=== PATIENT | female | born 1945 | race Hispanic/Latino ===

== ENCOUNTER 2018-09-11 08:36 | Inpatient (IN) | payer OTHER, MEDICARE ==
[2018-09-11 08:52] VITALS: BMI 32.8
[2018-09-11] MEDS ORDERED: Sodium Chloride 0.9% 1,000 ML IV STA ×2 (09:06→11:46)
--- NOTE | 2018-09-11 09:34 | ED PDOC ---
Arrival/HPI - General Chief Complaint: Flu-like Symptoms Time Seen by Provider: 09/11/18 08:38 Historian: Patient - History of Present Illness Narrative History of Present Illness (Text): 09/11/18 09:02 72 y/o F, with past medical history of COPD and hypertension, presents to the ED for evaluation of neck pain since last night. Patient states she was recently diagnosed with the flu 3 weeks ago and was started on Tamiflu and antibiotics with no improvement to symptoms. Patient reports worsening symptoms since then associated with worsening cough, nausea and back pain. Patient states developing neck pain last night, prompting her to present to the ED for evaluation. Patient denies any trauma or injury to the neck. Patient denies any other associated somatic complaints. Patient denies any fevers, chills, headache, dizziness, chest pain, shortness of breath, dyspnea on exertion, abdominal pain, vomiting, diarrhea, or any other complaints. PMD: Dr. Rivera Nephorologist: Dr. Sanford Time/Duration: 24 hours Symptom Onset: Gradual Symptom Course: Unchanged Activities at Onset: Light Context: Home Past Medical History - Provider Review Nursing Documentation Reviewed: Yes - Cardiac Hx Hypertension: Yes Hx Pacemaker: No - Neurological Hx Paralysis: No - Hematological/Oncological Hx Blood Transfusions: No - Musculoskeletal/Rheumatological Hx Musculoskeletal Disorders: No - Psychiatric Hx Emotional Abuse: No Hx Physical Abuse: No Hx Substance Use: No - Anesthesia Hx Anesthesia: Yes Hx Anesthesia Reactions: No Hx Malignant Hyperthermia: No Family/Social History - Physician Review Nursing Documentation Reviewed: Yes Family/Social History: Unknown Family HX Smoking Status: Never Smoked Hx Alcohol Use: No Hx Substance Use: No Allergies/Home Meds Allergies/Adverse Reactions: Allergies scallops Allergy (Verified 09/11/18 14:43) PT NOT SURE shrimp Allergy (Verified 09/11/18 14:43) PT NOT SURE wheat Allergy (Verified 09/11/18 14:43) RASH amlodipine Adverse Reaction (Verified 09/11/18 14:43) GLANDS IN NECK SWELLED Home Medications: Home Meds Medication Instructions Recorded Confirmed Alprazolam [Xanax] 0.5 mg PO BID 08/16/18 09/11/18 Glimepiride [amaRYL] 4 mg PO BID 08/16/18 09/11/18 Levothyroxine [Levoxyl] 0.125 mg PO DAILY 08/16/18 09/11/18 Metoprolol Succinate XL [Toprol XL] 100 mg PO DAILY 08/16/18 09/11/18 SITagliptin [Januvia] 50 mg PO DAILY 08/16/18 09/11/18 Simvastatin [Zocor] 20 mg PO DAILY 08/16/18 09/11/18 Valsartan/Hydrochlorothiazide 1 tab PO DAILY 08/16/18 09/11/18 [Valsartan-Hctz 320-25 mg Tab] Furosemide [Lasix] 40 mg PO DAILY 08/22/18 09/11/18 Review of Systems - Physician Review All systems were reviewed & negative as marked: Yes - Review of Systems Constitutional: absent: Fevers Respiratory: Cough. absent: SOB Cardiovascular: absent: Chest Pain, DEVRIES Gastrointestinal: Nausea. absent: Abdominal Pain, Diarrhea, Vomiting Genitourinary Female: absent: Dysuria, Urine Output Changes Musculoskeletal: Back Pain, Neck Pain Skin: absent: Rash Neurological: absent: Headache, Dizziness Psychiatric: absent: Anxiety Physical Exam Vital Signs Reviewed: Yes Vital Signs Temp Pulse Resp BP Pulse Ox 09/11/18 08:37 97 F L 80 18 192/78 H 100 Temperature: Afebrile Blood Pressure: Hypertensive Pulse: Regular Respiratory Rate: Normal Appearance: Positive for: Well-Appearing, Non-Toxic, Comfortable Pain Distress: None Mental Status: Positive for: Alert and Oriented X 3 - Systems Exam Head: Present: Atraumatic, Normocephalic Pupils: Present: PERRL Extroacular Muscles: Present: EOMI Conjunctiva: Present: Normal Neck: Present: Normal Range of Motion. No: MIDLINE TENDERNESS, Paraspinal Tenderness Respiratory/Chest: Present: Wheezes (coarse breath sounds with expiratory wheeze), Rhonchi. No: Respiratory Distress, Accessory Muscle Use Cardiovascular: Present: Regular Rate and Rhythm, Normal S1, S2. No: Murmurs Abdomen: No: Tenderness, Distention, Peritoneal Signs Back: Present: Normal Inspection. No: Midline Tenderness, Paraspinal Tenderness Upper Extremity: Present: Normal Inspection. No: Cyanosis, Edema Lower Extremity: Present: Normal Inspection. No: Edema Neurological: Present: GCS=15, Speech Normal Skin: Present: Warm, Dry, Normal Color. No: Rashes Psychiatric: Present: Alert, Oriented x 3, Normal Insight, Normal Concentration Medical Decision Making ED Course and Treatment: 09/11/18 09:02 Impression: 72 year old female presents to the ED for evaluation of persistent cough and neck pain Differential Diagnosis included but are not limited to: --Bronchitis --Influenza --PNA --Acute renal injury/failure Plan: -- VBG -- Labs -- CXR -- Duoneb -- Solumedrol -- IV Fluids -- Toradol -- X-ray of Cervical Spine -- Influenza AB -- Reassess and disposition Prior Visits: Notes and results from previous visits were reviewed. Progress Notes: 09/11/18 11:09 Labs reviewed with patient noted to have elevated creatinine of 9.2 with BUN of 126. Spoke to patient's daughter who is aware of patient's renal profile. Attempt to call Dr. Sanford(conveyor installer). Spoke to Dr. Rivera(PCP) who accepts patient onto his service and is aware of patient's clinical condition. Patient refused cervical spine XR. 09/11/18 11:29 Spoke to central supply clerk who spoke to Dr. Araiza(nephrology) who states he is unable to speak on the phone at this time. He states he will be unable to answer calls due to starting his dictations. 09/11/18 12:00 In depth discussion regarding patient's clinical course with underlying renal injury explained to family and patient who demonstrate understanding and remain hopeful her prognosis will be positive. Emotional support provided and micheal ssurance of further discussion regarding her kidney function will be answered by her conveyor installer, Dr. Sanford. Family demonstrates understanding. - Lab Interpretations Lab Results: 09/11/18 09:15 09/11/18 09:15 Lab Results 09/11/18 09:15: Sodium 141, Chloride 109 H, Potassium 3.7, Carbon Dioxide 12 L, Anion Gap 23 H, BUN 126 H*, Creatinine 9.8 H*, Est GFR ( Amer) 5, Est GFR (Non-Af Amer) 4, Random Glucose 152 H, Calcium 7.3 L, Total Bilirubin 0.2, AST 26, ALT 27, Alkaline Phosphatase 80, Troponin I 0.02, NT-Pro-B Natriuret Pep 31882 H, Total Protein 6.6, Albumin 3.3, Globulin 3.4, Albumin/Globulin Ratio 1.0 L 09/11/18 09:15: pO2 86 H, VBG pH 7.12 L*, VBG pCO2 36.0 L, VBG HCO3 11.7 L, VBG Total CO2 12.8 L, VBG O2 Sat (Calc) 97.3 H, VBG Base Excess -16.8 L, VBG Potassium 3.7, Sodium 142.0, Chloride 110.0 H, Glucose 163 H, Lactate 1.0, FiO2 21.0, Crit Value Called To Amrita dominguez, Crit Value Called By Meghan joyce, Blood Gas Notified Time 1050, Venous Blood Potassium 3.7 09/11/18 09:15: Influenza Typ A,B (EIA) Negative for flu a/b 09/11/18 09:15: WBC 15.8 H, RBC 2.81 L, Hgb 7.7 L, Hct 23.8 L, MCV 84.7, MCH 27.4, MCHC 32.4, RDW 14.8 H, Plt Count 513 H, MPV 9.6, Neut % (Auto) 87.8 H, Lymph % (Auto) 3.9 L, Overton % (Auto) 6.9 H, Eos % (Auto) 1.3 L, Baso % (Auto) 0.1, Lymph # (Auto) 0.6 L, Overton # (Auto) 1.1 H, Eos # (Auto) 0.2, Baso # (Auto) 0.02, Absolute Neuts (auto) 13.82 H, Neutrophils % (Manual) Pending, Lymphocytes % (Manual) Pending, Monocytes % (Manual) Pending I have reviewed the lab results: Yes - RAD Interpretation Radiology Orders: 09/11/18 09:02 CHEST PORTABLE [RAD] Stat 09/11/18 09:06 CERVICAL SPINE >18YR W/OBLIQUE [RAD] Stat - Medication Orders Current Medication Orders: Albuterol/Ipratropium (Duoneb 3 Mg/0.5 Mg (3 Ml) Ud) 3 ml IH Q15M DIONI Stop: 09/11/18 09:46 Sodium Chloride (Sodium Chloride 0.9%) 1,000 mls @ 999 mls/hr IV .Q1H1M STA Stop: 09/11/18 10:06 Discontinued Medications Ketorolac Tromethamine (Toradol) 30 mg IVP STAT STA Stop: 09/11/18 09:09 Methylprednisolone (Solu-Medrol) 125 mg IVP STAT STA Stop: 09/11/18 09:07 - Scribe Statement The provider has reviewed the documentation as recorded by the Liana Collins. All medical record entries made by the Liana were at my direction and personally dictated by me. I have reviewed the chart and agree that the record accurately reflects my personal performance of the history, physical exam, medical decision making, and the department course for this patient. I have also personally directed, reviewed, and agree with the discharge instructions and disposition. Disposition/Present on Arrival - Present on Arrival Any Indicators Present on Arrival: No History of DVT/PE: No History of Uncontrolled Diabetes: No Urinary Catheter: No History of Decub. Ulcer: No History Surgical Site Infection Following: None - Disposition Have Diagnosis and Disposition been Completed?: Yes Diagnosis: Acute renal failure, Bronchitis Disposition: HOSPITALIZED Disposition Time: 11:09 Patient Plan: Admission Condition: SERIOUS
[2018-09-11] MEDS: Albuterol-Ipratrop 3 mg / 0.5 (3 ml) UD IH SCH (09:51)
[2018-09-11] MEDS ORDERED: Albuterol 0.083% Inhal Sol (2.5 mg/3 mL) UD INH STA (10:09)
[2018-09-11 10:38] LABS: BASO # 0.02 K/mm3 (0.0-2.0); BASO % 0.1 % (0.0-3.0); EOS # 0.2 (0.0-0.7); EOS % 1.3 % (1.5-5.0); HEMOGLOBIN 7.7 g/dL (12.0-16.0); LYMPH # 0.6 (1.2-3.4); LYMPH % 3.9 % (22.0-35.0); MEAN CELL VOLUME 84.7 fl (80.0-105.0); MEAN CORPUSCULAR HEMOGLOBIN 27.4 pg (25.0-35.0); MEAN CORPUSCULAR HGB CONC 32.4 g/dl (31.0-37.0); MEAN PLATELET VOLUME 9.6 fl (7.0-11.0); MONO # 1.1 (0.1-0.6); MONO % 6.9 % (1.0-6.0); PLATELET COUNT 513 10^3/uL (120.0-450.0); RBC 2.81 10^6/uL (3.5-6.1); RED CELL DISTRIBUTION WIDTH 14.8 % (11.5-14.5); WHITE BLOOD COUNT 15.8 10^3/uL (4.5-11.0)
[2018-09-11 10:50] LABS: VENOUS BLOOD GAS BASE EXCESS -16.8 mmol/L (0.0-2.0); VENOUS BLOOD GAS PO2 86 mm/Hg (30-55); VENOUS BLOOD PH 7.12 (7.32-7.43)
[2018-09-11 10:54] LABS: ALBUMIN 3.3 g/dL (3.0-4.8); CALCIUM 7.3 mg/dL (8.4-10.5)
[2018-09-11 10:59] LABS: TROPONIN I 0.02 ng/mL
[2018-09-11] MEDS ORDERED: cefTRIAXone 1 gm 1 GM/100 ML BAG IVPB STA (11:08)
[2018-09-11 11:29] LABS: EOSINOPHIL 1 % (0.0-3.0); LYMPHOCYTE 7 % (22.0-35.0); MONOCYTE 4 % (1.0-6.0); NEUTROPHIL 88 % (50.0-70.0); PLATELET ESTIMATE NORMAL (NORMAL)
--- NOTE | 2018-09-11 13:38 | RAD ---
Date of service: 09/11/2018 HISTORY: shortness of breath COMPARISON: 09/11/2018. FINDINGS: LUNGS: The lungs are well inflated and clear. PLEURA: No pleural effusions or pneumothorax. CARDIOVASCULAR: Severe cardiomegaly. There are aortic atherosclerotic calcifications present. OSSEOUS STRUCTURES: Within normal limits for the patient's age. VISUALIZED UPPER ABDOMEN: Normal. OTHER FINDINGS: None. IMPRESSION: No active pulmonary disease. Severe cardiomegaly.
[2018-09-11 16:42] LABS: TOTAL IRON BINDING CAPACITY 189 ug/dL (265-497)
[2018-09-11 16:49] LABS: % IRON SATURATION 19 % (20-55); IRON 36 ug/dL (45-180)
[2018-09-11 16:51] LABS: HEPATITIS B SURFACE AG Negative (NEGATIVE)
[2018-09-11 16:56] LABS: HEPATITIS B CORE AB NEGATIVE (NEGATIVE)
--- NOTE | 2018-09-11 17:04 | CON ---
DATE OF CONSULTATION: 09/11/2018 The patient is admitted for Dr. Kushal Rivera. REFERRING MD: Dr. Rivera. REASON FOR CONSULTATION: Evaluation of the patient known to my partner, Dr. Sanford, who presents with acute renal failure superimposed on chronic kidney disease stage IV in the setting of bronchitis, dehydration with continued use of diuretic therapy and angiotensin receptor nicole therapy. HISTORY OF PRESENT ILLNESS: The patient is a 72-year-old white female with a history of chronic kidney disease stage IV, baseline creatinine is in the upper 2 range; history of hypertension, history of NIDDM. The patient has a history of COPD. She stopped cigarettes 5 years ago. History of likely hypertensive nephrosclerosis. History of hyperlipidemia, history of anemia. The patient was being scheduled for outpatient IV iron infusion therapy, which was never approved by her insurance company. The patient was apparently seen 2-3 weeks ago and diagnosed with possible flu. She did receive a 5-day course of Tamiflu. She states that she never quite did get better. She states that she has had minimal oral intake and fluid intake with weight loss over the last several weeks. Initially, she had diarrhea that she has had significant nausea without vomiting. Throughout this entire time, she remained on diuretic therapy with Lasix and hydrochlorothiazide. The patient presented to the hospital with a BUN of 126 and a creatinine of 9.8. Her CO2 level is low at 12. She has absolutely no uremic symptoms, but she does feel sick. According to her daughter, she has had shortness of breath with any type of exertion. Her hemoglobin is low at 7.7. Arterial blood gas showed a pH of 7.12 with a pCO2 of 36 and a pO2 of 86. We are asked to evaluate the patient for acute on chronic renal failure and severe metabolic acidosis. PAST MEDICAL HISTORY: Significant for COPD, history of chronic kidney disease stage IV with a baseline creatinine in the upper 2 range, history of hypertension with likely hypertensive nephrosclerosis, history of NIDDM, history of hyperlipidemia, hypothyroidism, and anemia secondary to chronic kidney disease. MEDICATIONS: Medications at home include that of Diovan HCT, Bactrim, Zocor, Januvia, Toprol, Levoxyl, Amaryl, p.o. Lasix, and Xanax. ALLERGIES: THE PATIENT IS ALLERGIC TO SCALLOP, SHRIMP, WHEAT, AND AMLODIPINE. SOCIAL HISTORY: Past history of cigarette smoking. No history of alcohol use. The patient has a supportive family. FAMILY HISTORY: Positive for dementia and cancer. No history of chronic kidney disease. REVIEW OF SYSTEMS: GENERAL: The patient states over the last 2-3 weeks she has not been herself, decreased appetite with weight loss. ENT: Denies any hearing or visual problems. PULMONARY: Admits to any type of exertional shortness of breath. CARDIAC: No history of ASHD. GASTROINTESTINAL: History of nausea. No history of abdominal pain. Initial history of diarrhea. No vomiting. No constipation. GENITOURINARY: History of chronic kidney disease stage IV with a baseline creatinine in the upper 2 range. CAREERS COUNSELLOR: Postmenopausal. ENDOCRINE: History of diabetes mellitus on oral agents at home. MUSCULOSKELETAL: No issues. NEURO: No past history of CVA, TIA, seizures or syncope. HEME/ONC: History of anemia secondary to chronic kidney disease. PSYCHIATRIC: History is negative. PHYSICAL EXAMINATION: GENERAL: The patient is currently seen in . She is accompanied by multiple members of her family. She is lying supine in bed and on a stretcher, being transferred over to bed. She appears to be in no acute distress and has no lb uremic symptoms. VITAL SIGNS: Blood pressure is 134/93, temperature 97.9, respiratory rate is 17 with a pulse ox of 99%. Her pulse is 89. HEENT: Exam shows her to be normocephalic, atraumatic. Conjunctivae are pale. Sclerae are nonicteric. Pupils equal, reactive to light and accommodation. Extraocular muscles are intact. Posterior pharynx is normal. NECK: Supple. No neck vein distention or thyromegaly. No lymphadenopathy. No bruits. CHEST: Clear to auscultation and percussion. No rales, rhonchi, or wheezing. CARDIOVASCULAR: Shows distant heart sounds. S1, S2 appear to be normal. No S3, no S4, no rub. ABDOMEN: Soft. Mild obesity. Bowel sounds normal. No rebound, guarding or masses. BACK: No CVAT. No spinal tenderness. EXTREMITIES: Show no lower extremity cyanosis, clubbing or edema. Distal lower extremity pulses are 1 to 2+ bilaterally. NEURO: Shows her to be alert, oriented x3. No gross focal motor or sensory deficits noted. No asterixis noted. LABORATORY DATA AND IMAGING STUDIES: Admitting chest x-ray showed no acute pulmonary disease. Admitting EKG is unavailable for comment. Labs, CBC, white blood cell count 15.8 with a hemoglobin of 7.7 and a platelet count of 513,000. Admitting blood gas pH 7.12, pO2 of 86 with a pCO2 of 36. Lactate level was 1. Chemistries show a sodium of 141, potassium 3.7, chloride 109 with a CO2 of 12. BUN is 126 with a creatinine of 9.8. The only creatinine available to me was as an outpatient creatinine of 2.9 earlier this year. Glucose is 152 with a calcium level of 7.3. Liver enzymes are normal. Albumin level was 3.3. Serologies, influenza serologies are negative for type A and type B flu. Microbiology, no cultures available as of yet. ASSESSMENT: 1. Acute renal failure superimposed on chronic kidney disease stage IV with a baseline creatinine in the upper 2 range. This all appears to be in the setting of a 2-3 weeks history of an upper respiratory tract infection, perhaps viral, perhaps bacterial. The patient states her oral intake had been nil over last 2-3 weeks. She continued taking diuretic therapy as both part of her blood pressure medication and a loop diuretic, Lasix. The patient has had difficulty ambulating around. She has been more short of breath. She has become more significantly anemic. Her hemoglobin is down to 7.7. She is not hyperkalemic. She does have a severe metabolic acidosis. The patient has no other uremic symptoms. Lengthy discussion with her and her family. We will try aggressively to give her IV fluid hydration with bicarbonate. Hopefully, we will see a drop in BUN and creatinine down to her baseline levels. At this point, no plans for any dialysis. I did, however, discuss with the patient and her family the possible need for dialysis if her BUN and creatinine continued to worsen, her acidosis worsens, or if she becomes hyperkalemic. 2. Severe anemia. In all likelihood, the patient should receive blood transfusions, as her hemoglobin will likely drop when we start her on IV fluid hydration. I will check her iron, TIBC, ferritin. I will start the patient on Aranesp, but in all likelihood she will need transfusions. 3. History of chronic obstructive pulmonary disease. History of bronchitis. The patient appears to be stable. She has had no recent admissions to the hospital for chronic obstructive pulmonary disease or acute bronchitis or pneumonia. 4. Baseline history of chronic kidney disease stage IV, perhaps secondary to hypertensive nephrosclerosis. Perhaps contribution from diabetes. 5. Hypothyroidism. The patient will continue thyroid replacement therapy. 6. Rdd-[id number]-[id number] diabetes mellitus. The patient should be kept on sliding-scale insulin. We should avoid oral medications for diabetes in order not to render her hypoglycemic, as it is not clear what her oral intake is going to be like. 7. Hyperlipidemia. Once the patient improves, she may be restarted back on statin therapy. PLAN: 1. The Plan is outlined above. 2. Accurate I's and O's. 3. Start IV fluid hydration with sodium bicarbonate. 4. Continue to monitor hemoglobin closely and transfuse as necessary as she will likely drop her hemoglobin further with hemodilution. 5. No plans right now for dialysis, but we did have this discussion should her numbers not improve or should her situation worsen. 6. Avoid all nephrotoxic agents. 7. Avoid valsartan, hydrochlorothiazide, and Lasix at this point in time. 8. Daily I's and O's. 9. Check phosphorus level and start binder therapy as necessary. 10. The patient may be placed on a renal diet. Thank you for letting me partake and share in the care of your patient. Noah Araiza MD MTDD
[2018-09-11 17:19] LABS: PH,URINE 5.5 (4.7-8.0); URINE BILIRUBIN NEGATIVE (NEGATIVE); URINE BLOOD MODERATE (NEGATIVE); URINE GLUCOSE (UA) 500 mg/dL (NEGATIVE); URINE LEUKOCYTE ESTERASE NEGATIVE Leu/uL (NEGATIVE); URINE PROTEIN 100 mg/dL (<30 mg/dL); URINE UROBILINOGEN 0.2 E.U./dL (<1 E.U./dL)
[2018-09-11 17:20] LABS: URINE APPEARANCE SLIGHT-CLOUDY (CLEAR); URINE COLOR YELLOW (YELLOW)
[2018-09-11 17:33] LABS: CREATININE,RANDOM URINE 64 mg/dL
[2018-09-11 17:43] LABS: URINE AMORPHOUS SEDIMENT SMALL /hpf
[2018-09-11] MEDS ORDERED: Metoprolol Succinate 100 mg XL Tab PO STA (18:05)
[2018-09-11] MEDS ORDERED: Pneumococcal 23-Valent Vaccine IM ONE (20:13)
[2018-09-11] MEDS ORDERED: Influenza Vaccine 60 mcg/0.5 mL SYR (4YR UP) IM ONE (20:13)
[2018-09-11 20:40] LABS: FERRITIN 13.2 ng/mL
--- NOTE | 2018-09-11 21:46 | CP.PCM.PN ---
Subjective - Date & Time of Evaluation Date of Evaluation: 09/11/18 Time of Evaluation: 21:45 - Subjective Subjective: House staff paged earlier regarding patient's complaint of chest pain. Stat EKG was completed which showed no change from prior. Stat troponin was ordered but patient is refusing additional blood work at this time. Patient seen and exami marga ambulating around the room without difficulty. She does not appear to be in any acute distress. Patient received pepcid and states this has improved the pain. Nursing staff notified to continue to monitor and notify of any changes. Objective - Vital Signs/Intake and Output Vital Signs (last 24 hours): Temp Pulse Resp BP Pulse Ox 98.7 F 100 H 17 164/87 H 100 09/11/18 18:29 09/11/18 18:29 09/11/18 19:57 09/11/18 18:29 09/11/18 18:29 Intake and Output: 09/11/18 09/12/18 18:59 06:59 Intake Total 300 Balance 300 - Medications Medications: Current Medications Darbepoetin Teo (Aranesp) 100 mcg SC ONCE ONE Stop: 09/12/18 10:01 Sodium Bicarbonate 75 meq/ (Sodium Chloride) 1,075 mls @ 80 mls/hr IV .[id number] DIONI Metoprolol Succinate (Toprol Xl) 100 mg PO DAILY DIONI Pantoprazole Sodium (Protonix Ec Tab) 40 mg PO 0600 DIONI - Labs Labs: 09/11/18 09:15 09/11/18 09:15
--- NOTE | 2018-09-11 23:03 | HP ---
DATE OF EXAM: 09/11/2018 HISTORY OF PRESENT ILLNESS: The patient is a 72-year-old white female with history of noninsulin-dependent diabetes mellitus, hypertension, and chronic renal insufficiency. The patient recently had running BUN and creatinine of about 40 and 3.4. Over the last week or so, the patient has had upper respiratory tract infection, feeling weak, and developed some severe back pain and neck pain, took occasional Advil, but not excessive amounts. Eventually had increased shortness of breath and difficulty breathing and decrease in her urination and came to emergency room and was found to be in acute renal failure. The patient initially was found to have a BUN and creatinine of approximately 126 and a creatinine of 9.8. She also was found to have a potassium of 3.7 and a CO2 of 12. The patient did have a blood gas done and had a pH of 7.12 with a bicarbonate of 12.8 consistent with severe metabolic acidosis. The patient was also found to have an elevated white count and BNP of 17,800 and a hemoglobin down to 7.7 with hematocrit of 23.8 and white count of 15,800 with left shift. The patient was also found to have a large amount of protein and sugar in her urine, moderate blood and 10-15 rbc's. She was negative for hepatitis B and also negative for influenza A and B. SOCIAL HISTORY: The patient has no travel history. She is a former smoker; she does have a history of COPD and uses no illicit drugs. MEDICATIONS: The patient has been on antihypertensive medication and antidiabetic medication as an outpatient. FAMILY HISTORY: Noncontributory. REVIEW OF SYSTEMS: GENERAL: Positive for shortness of breath, cough, and sputum production. CARDIAC: Positive for some left and right across the chest pain without palpitations, without nausea, vomiting and without lightheadedness or dizziness. RESPIRATORY: As again stated, positive for cough and sputum production. GENITOURINARY: Positive for hematuria and decreased urine volume, oliguria. GASTROINTESTINAL: Negative for nausea, vomiting or diarrhea. NEUROLOGICAL: Negative for syncope, weakness, or paresthesias. PHYSICAL EXAMINATION: GENERAL: Shows a well-developed, but slightly obese white female with an audible wheeze and cough and also pallor. HEART: Regular sinus rhythm without S3, S4 or murmurs. CHEST: Shows decreased breath sounds with rhonchi in both bases and anterior wheezing. ABDOMEN: Soft and obese, but benign. EXTREMITIES: Without cyanosis, clubbing, or edema. HEENT: Sclerae are anicteric and conjunctivae are pale. SKIN: Also pale. IMPRESSION AND PLAN: A 72-year-old white female with history of noninsulin-dependent diabetes mellitus and hypertension with history of chronic renal insufficiency, presenting with acute renal failure with also upper respiratory tract infection, possible pneumonia with an elevated white count, anemia of chronic renal disease, and metabolic acidosis. Kushal Rivera MD
[2018-09-12] MEDS: Pantoprazole 40 mg EC Tab PO SCH (05:33)
--- NOTE | 2018-09-12 07:05 | CARD ---
APPROVED REPORT Date of service: 09/11/2018 EKG Measurement Heart [id number] <Conclusion> Sinus rhythm with premature atrial complexes with aberrant conduction Nonspecific ST abnormality Prolonged QT Abnormal ECG
[2018-09-12 07:11] LABS: MEAN CELL VOLUME 83.5 fl (80.0-105.0); MEAN CORPUSCULAR HEMOGLOBIN 27.1 pg (25.0-35.0); MEAN CORPUSCULAR HGB CONC 32.5 g/dl (31.0-37.0); MEAN PLATELET VOLUME 9.2 fl (7.0-11.0); RBC 2.36 10^6/uL (3.5-6.1); WHITE BLOOD COUNT 10.1 10^3/uL (4.5-11.0)
[2018-09-12 07:25] LABS: HEMOGLOBIN 6.4 g/dL (12.0-16.0)
[2018-09-12 07:45] LABS: ALBUMIN 2.9 g/dL (3.0-4.8); CALCIUM 7.5 mg/dL (8.4-10.5); URIC ACID 6.9 mg/dL (2.5-6.2)
[2018-09-12 08:58] LABS: TROPONIN I 0.8 ng/mL
--- NOTE | 2018-09-12 09:01 | US ---
Date of service: 09/11/2018 PROCEDURE: Ultrasound of the Kidneys HISTORY: ARF, CKD4 COMPARISON: None available. TECHNIQUE: Sonogram of the kidneys. FINDINGS: RIGHT KIDNEY: Measures: 5.9 x 11.9. cm. Normal in size, contour and echogenicity. No stone, solid mass lesion or hydronephrosis visualized. LEFT KIDNEY: Measures: 6.1 x 10.8 cm. Normal in size, contour and echogenicity. No stone, solid mass lesion or hydronephrosis visualized. OTHER FINDINGS: None. IMPRESSION: Unremarkable renal sonogram.
[2018-09-12] MEDS: Levothyroxine 125 MCG TAB PO SCH (09:28)
[2018-09-12] MEDS: Metoprolol Succinate 100 mg XL Tab PO SCH (09:29)
[2018-09-12] MEDS: cefTRIAXone 1 gm 1 GM/100 ML BAG IVPB SCH (09:29)
[2018-09-12] MEDS ORDERED: Darbepoetin Alfa 100 mcg/ml Inj SC ONE (10:00)
[2018-09-12] MEDS: Albuterol-Ipratrop 3 mg / 0.5 (3 ml) UD IH SCH ×3 (11:28→20:09)
[2018-09-12] MEDS ORDERED: Magnesium Sulfate 1 gm in D5W 1 GM/100 ML BAG IVPB ONE (11:39)
[2018-09-12] MEDS ORDERED: Albuterol-Ipratrop 3 mg / 0.5 (3 ml) UD ONE (11:54)
--- NOTE | 2018-09-12 12:48 | PN ---
DATE: 09/12/2018 SUBJECTIVE: A 72-year-old white female in the hospital with acute renal failure, fever, cough and back pain. The patient is somewhat improved this morning with less cough and less back pain. Her hemoglobin dropped from 7.7 to 6.4; she will be transfused two units of packed cells today. Her BUN and creatinine dropped to 119 and 9.5 instead of 128 and 9.8. The potassium is 3.2. The patient is awake and alert. Seen with her daughter this morning. She has less back pain. PHYSICAL EXAMINATION CHEST: Clear to auscultation. HEART: Regular sinus rhythm. EXTREMITIES: No cyanosis, clubbing or edema. The patient will need blood transfusion, is advised. Awaiting consultation with Dr. Sanford. the patient was scheduled for a possible renal biopsy as an outpatient. Hopefully we will do either or renal biopsy. Continue hydration. IMPRESSION: A 72-year-old white female with poorly controlled diabetes mellitus and hypertension, acute renal failure, chronic renal insufficiency, rule out glomerulonephritis, other causes of diabetic nephropathy, other causes of acute renal failure, severe anemia secondary to chronic renal disease, noninsulin-dependent diabetes mellitus and hypertension. Kushal Rivera MD
[2018-09-12] MEDS: Insulin Reg-MEDIUM-Coverage SC SCH ×3 (13:07→21:33)
--- NOTE | 2018-09-12 20:49 | PN ---
DATE: 09/12/2018 SUBJECTIVE: The patient is seen lying in bed. She is awake. She is alert. She has a cough. She reports feeling much better. She denies any chest pain today. She denies any nausea or vomiting. She denies any urinary complaints. PHYSICAL EXAMINATION GENERAL: Obese elderly lady sitting in bed. VITAL SIGNS: Blood pressure 149/67, heart rate 70, respiratory rate 18, temperature 98.1. HEENT: Normocephalic, atraumatic, positive pallor. NECK: Supple, no JVD. LUNGS: Bilateral equal entry, bilateral rhonchi, bilateral equal expansion, no rales. CARDIAC: S1, S2, regular rate and rhythm, no murmur, no rub. ABDOMEN: Obese, distended, soft, nontender, bowel sounds present. EXTREMITIES: No lower extremity edema. INTAKE AND OUTPUT: 300/1475. LABORATORY DATA: WBC 10, hemoglobin 6.4, hematocrit 19.7, platelets 468. Sodium 141, potassium 3.2, chloride 111, CO2 of 12. Anion gap 22, BUN 119, creatinine 9.5, glucose 116. Uric acid 6.9, calcium 7.5, phosphorus 13.1, magnesium 1.6. Troponin 0.1 and the second set troponin 0.8. Albumin 2.9. Urinalysis yellow, slightly cloudy, pH 5.5 specific gravity 1.030, protein 100, glucose 500, moderate blood. Leukocyte esterase negative. RENAL ULTRASOUND: The right kidney 11.9 cm, left kidney 10.8 cm, normal in size and echogenicity. CURRENT MEDICATIONS: DuoNeb, insulin, Lipitor, amlodipine 10 mg, Protonix 40 mg, Rocephin 1 g daily, half-normal saline with 75 mEq of sodium bicarbonate at 75 ml/hour, Synthroid 125 mcg, Toprol XL 100 mg, Xanax 0.5 mg t.i.d., Aranesp 100 mg given this morning, magnesium sulfate 1 g given this morning, Xanax. Receiving 2 units of blood transfusion today. ASSESSMENT 1. Acute kidney injury superimposed on chronic kidney disease, stage IV. 2. Severe anion gap metabolic acidosis secondary to advanced renal disease. 3. Nephrotic range proteinuria in the setting of well-controlled diabetes. 4. Longstanding diabetes. 5. Chronic obstructive pulmonary disease. 6. Longstanding strong smoking history. 7. Hypertension. 8. Severe anemia with low iron stores, never had a colonoscopy. 9. Anxiety. PLAN 1. Continue IV fluids with sodium bicarbonate. 2. No plans for urgent dialysis at this time. 3. A 24-hour urine for protein and creatinine clearance. 4. Proteinuria workup 5. Monitor urine output. 6. Would ideally like to have a kidney biopsy done once the patient is stable. 7. Suspect there is underlying glomerulonephritis, which is the cause of her proteinuria and renal disease and not diabetes. 8. Past medical, surgical history, family history, social history, review of systems all reviewed and unchanged unless mentioned. Ainsley Sanford MD
[2018-09-13] MEDS: Albuterol-Ipratrop 3 mg / 0.5 (3 ml) UD IH SCH ×5 (02:40→19:46)
[2018-09-13] MEDS: Pantoprazole 40 mg EC Tab PO SCH (05:53)
[2018-09-13 07:11] LABS: MEAN CELL VOLUME 84.2 fl (80.0-105.0); MEAN CORPUSCULAR HEMOGLOBIN 27.6 pg (25.0-35.0); MEAN CORPUSCULAR HGB CONC 32.8 g/dl (31.0-37.0); RBC 2.97 10^6/uL (3.5-6.1); RED CELL DISTRIBUTION WIDTH 14.9 % (11.5-14.5); WHITE BLOOD COUNT 15.3 10^3/uL (4.5-11.0)
[2018-09-13 07:12] LABS: HEMOGLOBIN 8.2 g/dL (12.0-16.0)
[2018-09-13 07:19] LABS: IRON 67 ug/dL (45-180)
[2018-09-13 07:28] LABS: ALBUMIN 3.2 g/dL (3.0-4.8); ALT/SGPT 24 U/L (7-56); AST/SGOT 23 U/L (14-36); BLOOD UREA NITROGEN 138 mg/dL (7-21); CALCIUM 7.2 mg/dL (8.4-10.5); GFR NON-AFRICAN AMERICAN 4
[2018-09-13 07:29] LABS: % IRON SATURATION 38 % (20-55); TOTAL IRON BINDING CAPACITY 178 ug/dL (265-497)
[2018-09-13 11:07] LABS: INR 1.25; PARTIAL THROMBOPLASTIN TIME 37.5 Seconds (26.9-38.3); PROTHROMBIN TIME 14.1 SECONDS (9.4-12.5)
[2018-09-13] MEDS: Insulin Reg-MEDIUM-Coverage SC SCH ×4 (11:50→21:33)
[2018-09-13] MEDS: Metoprolol Succinate 100 mg XL Tab PO SCH (11:59)
[2018-09-13] MEDS: Levothyroxine 125 MCG TAB PO SCH (11:59)
[2018-09-13] MEDS: cefTRIAXone 1 gm 1 GM/100 ML BAG IVPB SCH (12:00)
--- NOTE | 2018-09-13 13:36 | PN ---
DATE: 09/13/2018 SUBJECTIVE: A 73-year-old white female with acute renal failure and chronic renal insufficiency. The patient is status post transfusions, from hemoglobin 6.4 to 8.2. PHYSICAL EXAMINATION: CHEST: Some rhonchi bilaterally. HEART: Regular sinus rhythm. EXTREMITIES: No cyanosis, clubbing or edema. LABORATORY DATA: She is having an elevated white count of 15,000. She has a sed rate of over 140. She has a BUN and creatinine that were risen to 138 and 10. Potassium is 3.1, bicarb is 13. ASSESSMENT AND PLAN: The patient was advised for a renal biopsy and probably needs acute dialysis. We will discuss with Dr. Sanford. The patient is complaining of less back pain, but is uncomfortable and afraid and worried about her condition. The case will be discussed with Dr. Sanford. The patient is still making urine, however. She does not have any loss of appetite or itching. We will discuss with Dr. Sanford for acute dialysis and hemodialysis and kidney biopsy. Kushal Rivera MD
[2018-09-13 13:45] LABS: HEPATITIS B SURFACE AG Negative (NEGATIVE)
[2018-09-13 13:54] LABS: COMPLEMENT C4 52.8 mg/dL (14.0-44.0)
[2018-09-13 13:57] LABS: IMMUNOGLOBULIN A 131.6 mg/dL (70.0-400.0); IMMUNOGLOBULIN G 589.1 mg/dL (700.0-1600.0)
[2018-09-13 14:01] LABS: IMMUNOGLOBULIN M < 25.0 mg/dL (40.0-230.0)
[2018-09-13 14:02] LABS: HEPATITIS C ANTIBODY NEGATIVE (NEGATIVE)
[2018-09-13] MEDS ORDERED: Calcium Gluconate in NS 1 GM/50 ML BAG IV ONE (21:30)
[2018-09-13] MEDS ORDERED: Menthol/Methyl Salicylate Ointment(1 oz) TOP PRN (22:01)
--- NOTE | 2018-09-13 23:11 | PN ---
DATE: 09/13/2018 SUBJECTIVE: The patient is seen, sitting in chair. She is awake, she is alert, she is comfortable. She is not in acute distress at this time. She still has bad cough. She has some dyspnea on exertion. PHYSICAL EXAMINATION GENERAL: Obese, elderly lady, sitting in chair. VITAL SIGNS: Blood pressure 147/71, heart rate 75, respiratory rate 20, temperature 97.2. HEENT: Normocephalic, atraumatic, positive pallor. NECK: Supple. No JVD. LUNGS: Bilateral equal air entry, bilateral equal expansion. No rales. CARDIAC: S1, S2, regular rate and rhythm, no murmur, no rub. ABDOMEN: Obese, distended, soft, nontender, bowel sounds present. EXTREMITIES: 1+ pitting edema of the lower extremity. INTAKE AND OUTPUT: 4770/1100. LABORATORY DATA: WBC 15, hemoglobin 8.2, hematocrit 25, platelets 463. Sodium 143, potassium 3.1, chloride 109, CO2 of 13, BUN 138, creatinine 10, glucose 141, calcium 7.2, A1c 6.7, albumin 3.2, corrected calcium is 7.7. ESR 140. Complements normal. CURRENT MEDICATIONS: Lipitor, amlodipine 10 mg, Protonix 40 mg, ceftriaxone 1 g daily, Synthroid, Toprol-XL, Xanax. ASSESSMENT AND PLAN: 1. Acute kidney injury superimposed on chronic kidney disease, stage IV. 2. Nephrotic range proteinuria. 3. Underlying glomerulonephritis suspect. 4. Well controlled diabetes. 5. Severe chronic obstructive pulmonary disease with exacerbation. 6. Severe anemia. 7. Hypocalcemia. 8. Hypertension. PLAN: 1. Discontinue IV fluids. 2. Confused one unit of PRBC. 3. Lasix 40 mg IV push after transfusion. 4. Trial of dialysis. 5. Replace potassium. 6. Kidney biopsy tomorrow. 7. Long discussion with the patient and family, discussed with Dr. Rivera. Ainsley Sanford MD
--- NOTE | 2018-09-14 00:41 | CP.PCM.PN ---
<Melvin Ross - Last Filed: 09/14/18 01:13> Subjective - Date & Time of Evaluation Date of Evaluation: 09/14/18 Time of Evaluation: 00:38 - Subjective Subjective: House staff paged for new onset RLE swelling/erythema. Patient admits to R sided calf pain but states she has had this in the past. She states after lying in bed today the pain seems to have gotten worse. Objective - Vital Signs/Intake and Output Vital Signs (last 24 hours): Temp Pulse Resp BP Pulse Ox 98.1 F 78 20 129/69 98 09/14/18 00:00 09/14/18 00:00 09/14/18 00:00 09/14/18 00:00 09/14/18 00:00 Intake and Output: 09/13/18 09/14/18 18:59 06:59 Intake Total 2004 Output Total 800 Balance 1205 - Medications Medications: Current Medications Albuterol/Ipratropium (Duoneb 3 Mg/0.5 Mg (3 Ml) Ud) 3 ml IH [id number] [facility] Last Admin: 09/13/18 19:46 Dose: 3 ml Alprazolam (Xanax) 0.5 mg PO TID PRN; Protocol PRN Reason: Anxiety Last Admin: 09/13/18 21:07 Dose: 0.5 mg Amlodipine Besylate (Norvasc) 10 mg PO DAILY [facility] Last Admin: 09/13/18 11:58 Dose: 10 mg Atorvastatin Calcium (Lipitor) 10 mg PO DIN [facility] Last Admin: 09/13/18 17:31 Dose: 10 mg Calcitriol (Rocaltrol) 0.5 mcg PO DAILY [facility] Camphor/Menthol (Bengay) 1 gm TOP QID PRN PRN Reason: Pain, Mild (1-3) Last Admin: 09/13/18 22:29 Dose: 1 dose Ceftriaxone Sodium (Rocephin 1 Gram Ivpb) 1 gm in 100 mls @ 100 mls/hr IVPB DAILY [facility]; Protocol Last Admin: 09/13/18 12:00 Dose: 100 mls/hr Potassium Chloride (Potassium Chloride 20 Meq/100 Ml) 20 meq in 100 mls @ 50 mls/hr IVPB Q2H [facility] Stop: 09/14/18 00:59 Last Admin: 09/13/18 22:52 Dose: 50 mls/hr Insulin Human Regular (Humulin R Med) 0 units SC ACHS [facility]; Protocol Last Admin: 09/13/18 21:33 Dose: Not Given Levothyroxine Sodium (Synthroid) 125 mcg PO DAILY [facility] Last Admin: 09/13/18 11:59 Dose: 125 mcg Metoprolol Succinate (Toprol Xl) 100 mg PO DAILY [facility] Last Admin: 09/13/18 11:59 Dose: 100 mg Pantoprazole Sodium (Protonix Ec Tab) 40 mg PO 0600 [facility] Last Admin: 09/13/18 05:53 Dose: 40 mg Sodium Bicarbonate (Sodium Bicarbonate Tab) 650 mg PO Q8 [facility] Last Admin: 09/13/18 21:13 Dose: 650 mg - Labs Labs: 09/13/18 06:45 09/13/18 06:45 PT 14.1 SECONDS (9.4-12.5) H 09/13/18 10:40 INR 1.25 09/13/18 10:40 APTT 37.5 Seconds (26.9-38.3) 09/13/18 10:40 - Constitutional Appears: Non-toxic, No Acute Distress - Head Exam Head Exam: ATRAUMATIC, NORMOCEPHALIC - Eye Exam Eye Exam: EOMI, PERRL - ENT Exam ENT Exam: Mucous Membranes Moist - Respiratory Exam Respiratory Exam: Clear to Ausculation Bilateral, NORMAL BREATHING PATTERN. absent: Rales, Rhonchi, Wheezes - Cardiovascular Exam Cardiovascular Exam: REGULAR RHYTHM, RRR, +S1, +S2. absent: Gallop, Rubs, Murmur - GI/Abdominal Exam GI & Abdominal Exam: Soft. absent: Guarding, Tenderness - Extremities Exam Additional comments: RLE appears more edematous and is warmer to touch than LLE Assessment and Plan - Assessment and Plan (Free Text) Plan: Will get RLE doppler US to r/o DVT Preliminary read negative for DVT, f/u official read in AM Continue pain management Informed nursing staff to notify of any changes <Yfn Bustamante - Last Filed: 09/14/18 03:38> Objective - Vital Signs/Intake and Output Vital Signs (last 24 hours): Temp Pulse Resp BP Pulse Ox 98.1 F 78 20 129/69 98 09/14/18 00:00 09/14/18 00:00 09/14/18 00:00 09/14/18 00:00 09/14/18 00:00 Intake and Output: 09/13/18 09/14/18 18:59 06:59 Intake Total 2004 Output Total 800 Balance 1205 - Medications Medications: Current Medications Albuterol/Ipratropium (Duoneb 3 Mg/0.5 Mg (3 Ml) Ud) 3 ml IH [id number] [facility] Last Admin: 09/14/18 01:36 Dose: 3 ml Alprazolam (Xanax) 0.5 mg PO TID PRN; Protocol PRN Reason: Anxiety Last Admin: 09/13/18 21:07 Dose: 0.5 mg Amlodipine Besylate (Norvasc) 10 mg PO DAILY [facility] Last Admin: 09/13/18 11:58 Dose: 10 mg Atorvastatin Calcium (Lipitor) 10 mg PO DIN [facility] Last Admin: 09/13/18 17:31 Dose: 10 mg Calcitriol (Rocaltrol) 0.5 mcg PO DAILY [facility] Camphor/Menthol (Bengay) 1 gm TOP QID PRN PRN Reason: Pain, Mild (1-3) Last Admin: 09/13/18 22:29 Dose: 1 dose Ceftriaxone Sodium (Rocephin 1 Gram Ivpb) 1 gm in 100 mls @ 100 mls/hr IVPB DAILY [facility]; Protocol Last Admin: 09/13/18 12:00 Dose: 100 mls/hr Insulin Human Regular (Humulin R Med) 0 units SC ACHS [facility]; Protocol Last Admin: 09/13/18 21:33 Dose: Not Given Levothyroxine Sodium (Synthroid) 125 mcg PO DAILY [facility] Last Admin: 09/13/18 11:59 Dose: 125 mcg Metoprolol Succinate (Toprol Xl) 100 mg PO DAILY [facility] Last Admin: 09/13/18 11:59 Dose: 100 mg Pantoprazole Sodium (Protonix Ec Tab) 40 mg PO 0600 [facility] Last Admin: 09/13/18 05:53 Dose: 40 mg Sodium Bicarbonate (Sodium Bicarbonate Tab) 650 mg PO Q8 [facility] Last Admin: 09/13/18 21:13 Dose: 650 mg - Labs Labs: 09/13/18 06:45 09/13/18 06:45 PT 14.1 SECONDS (9.4-12.5) H 03/14/19 10:40 INR 1.25 09/13/18 10:40 APTT 37.5 Seconds (26.9-38.3) 09/13/18 10:40 Assessment and Plan - Assessment and Plan (Free Text) Assessment: Right leg pain. Attending/Attestation - Attestation I have personally seen and examined this patient.: Yes I have fully participated in the care of the patient.: Yes I have reviewed all pertinent clinical information, including history, physical exam and plan: Yes Notes (Text): 09/14/18 03:20 To be dictated. Seen at bed side. Sitting in chair. C/o right distal lateral thigh pain C/o hot feeling in same. Doppler allegedly neg as per US Tech. Rx, obs. Luann castellanon.
[2018-09-14] MEDS: Albuterol-Ipratrop 3 mg / 0.5 (3 ml) UD IH SCH ×3 (01:36→13:29)
[2018-09-14] MEDS: Pantoprazole 40 mg EC Tab PO SCH (05:43)
--- NOTE | 2018-09-14 06:43 | CP.PCM.PN ---
<Elvira Cotto - Last Filed: 09/14/18 11:16> Subjective - Date & Time of Evaluation Date of Evaluation: 09/14/18 Time of Evaluation: 06:55 - Subjective Subjective: IM resident progress note for Dr. Vance's service, Covering for Dr Rivera. Patient complaining of leg pain overnight, bengay was giving by the night team with no improvement. Patient to go for LE U/S. otherwise patient states the cough has improved. No fever or chills. No nausea, vomiting or diarrhea. Going for renal biopsy today. Objective - Vital Signs/Intake and Output Vital Signs (last 24 hours): Temp Pulse Resp BP Pulse Ox 98.1 F 78 20 129/69 98 09/14/18 00:00 09/14/18 00:00 09/14/18 00:00 09/14/18 00:00 09/14/18 00:00 Intake and Output: 09/13/18 09/14/18 18:59 06:59 Intake Total 2005 Output Total 800 Balance 1205 - Medications Medications: Current Medications Albuterol/Ipratropium (Duoneb 3 Mg/0.5 Mg (3 Ml) Ud) 3 ml IH [id number] [facility] Last Admin: 09/14/18 01:36 Dose: 3 ml Alprazolam (Xanax) 0.5 mg PO TID PRN; Protocol PRN Reason: Anxiety Last Admin: 09/14/18 03:52 Dose: 0.5 mg Amlodipine Besylate (Norvasc) 10 mg PO DAILY [facility] Last Admin: 09/13/18 11:58 Dose: 10 mg Atorvastatin Calcium (Lipitor) 10 mg PO DIN [facility] Last Admin: 09/13/18 17:31 Dose: 10 mg Calcitriol (Rocaltrol) 0.5 mcg PO DAILY [facility] Camphor/Menthol (Bengay) 1 gm TOP QID PRN PRN Reason: Pain, Mild (1-3) Last Admin: 09/13/18 22:29 Dose: 1 dose Ceftriaxone Sodium (Rocephin 1 Gram Ivpb) 1 gm in 100 mls @ 100 mls/hr IVPB DAILY [facility]; Protocol Last Admin: 09/13/18 12:00 Dose: 100 mls/hr Insulin Human Regular (Humulin R Med) 0 units SC ACHS [facility]; Protocol Last Admin: 09/13/18 21:33 Dose: Not Given Levothyroxine Sodium (Synthroid) 125 mcg PO DAILY [facility] Last Admin: 09/13/18 11:59 Dose: 125 mcg Metoprolol Succinate (Toprol Xl) 100 mg PO DAILY [facility] Last Admin: 09/13/18 11:59 Dose: 100 mg Pantoprazole Sodium (Protonix Ec Tab) 40 mg PO 0600 [facility] Last Admin: 09/14/18 05:43 Dose: 40 mg Sodium Bicarbonate (Sodium Bicarbonate Tab) 650 mg PO Q8 [facility] Last Admin: 09/14/18 05:43 Dose: 650 mg - Labs Labs: 09/13/18 06:45 09/13/18 06:45 PT 14.1 SECONDS (9.4-12.5) H 09/13/18 10:40 INR 1.25 09/13/18 10:40 APTT 37.5 Seconds (26.9-38.3) 09/13/18 10:40 - Constitutional Appears: No Acute Distress, Chronically Ill - Head Exam Head Exam: ATRAUMATIC, NORMAL INSPECTION, NORMOCEPHALIC - Eye Exam Eye Exam: Normal appearance - ENT Exam ENT Exam: Mucous Membranes Moist - Neck Exam Neck Exam: Normal Inspection - Respiratory Exam Respiratory Exam: Clear to Ausculation Bilateral, NORMAL BREATHING PATTERN. ab sent: Rales, Rhonchi, Wheezes, Respiratory Distress, Stridor - Cardiovascular Exam Cardiovascular Exam: REGULAR RHYTHM, +S1, +S2. absent: Bradycardia, Tachycard ia, Diastolic murmur, Gallop, Irregular Rhythm, JVD, RRR, Rubs, Murmur - GI/Abdominal Exam GI & Abdominal Exam: Soft, Normal Bowel Sounds. absent: Distended, Firm, Guarding, Rigid, Tenderness, Organomegaly, Rebound Additional comments: Obese abdomen - Extremities Exam Extremities Exam: Pedal Edema (trace), Tenderness - Back Exam Back Exam: NORMAL INSPECTION - Neurological Exam Neurological Exam: Alert, Awake, Oriented x3 - Psychiatric Exam Psychiatric exam: Normal Affect, Normal Mood - Skin Skin Exam: Dry, Normal Color, Warm Assessment and Plan - Assessment and Plan (Free Text) Assessment: 1- Acute bronchitis 2- Acute normocytic anemia- likely anemia due to CKD 3- Non anion gap metabolic acidosis 4- Severe hypokalemia 5- ELIZABETH on CKD 6- Hypocalcemia 7- NIDDM2 8- Nephrotic range proteinuria 3 gram- 9- Hypothyroidism 10-HLD 11- Jean Lower extremities pain Plan: Patient had mild leukocytosis on admission, however chest xray was normal. Blood culture with no growth past 48 hrs. Patient is on vantin for acute bronchitis. Patient is also on duonebs. Patient is s/p 3 units of prbc since admission, hgb is been stable at around 8. Iron work up pointing toward anemia of chronic disease. For metabolic acidosis, patient is on sodium bicarbonate tabs. Potassium is being replete. Etiology of patient's abrupt change in renal function is unclear, renal U/S is normal, thus patient is undergoing renal biopsy. Patient is also scheduled for HD cath placement today and will be starting HD soon. Supervisor [employer]ingents, Dr Sanford is on the case. Patient is on calcitriol for 2nd hypocalcemia, PTH's pending. On Norvasc and toprol xl for htn, synthroid for hypothyroidism, on Lipitor for hld. For lower extremities pain, LE u/s is ordered, tylenol prn for pain. Also on xanax prn for anxiety. Will continue protonix for gi prophylaxis. Patient seen, examined and case discussed with Dr. Vance. <James Vance S - Last Filed: 09/14/18 20:01> Objective - Vital Signs/Intake and Output Vital Signs (last 24 hours): Temp Pulse Resp BP Pulse Ox 98 F 82 20 145/68 100 09/14/18 11:10 09/14/18 11:53 09/14/18 11:10 09/14/18 11:54 09/14/18 10:20 Intake and Output: 09/14/18 09/15/18 18:59 06:59 Intake Total 30 Balance 30 - Medications Medications: Current Medications Acetaminophen (Tylenol 325mg Tab) 650 mg PO Q4H PRN PRN Reason: Pain, severe (8-10) Last Admin: 09/14/18 18:42 Dose: 650 mg Albuterol/Ipratropium (Duoneb 3 Mg/0.5 Mg (3 Ml) Ud) 3 ml IH [id number] Last Admin: 09/14/18 13:29 Dose: Not Given Alprazolam (Xanax) 0.5 mg PO TID PRN; Protocol PRN Reason: Anxiety Last Admin: 09/14/18 12:10 Dose: 0.5 mg Amlodipine Besylate (Norvasc) 10 mg PO DAILY [facility] Last Admin: 09/14/18 11:54 Dose: 10 mg Atorvastatin Calcium (Lipitor) 10 mg PO DIN [facility] Last Admin: 09/14/18 17:43 Dose: 10 mg Calcitriol (Rocaltrol) 0.5 mcg PO DAILY [facility] Last Admin: 09/14/18 11:53 Dose: 0.5 mcg Camphor/Menthol (Bengay) 1 gm TOP QID PRN PRN Reason: Pain, Mild (1-3) Last Admin: 09/13/18 22:29 Dose: 1 dose Cefpodoxime Proxetil (Vantin) 200 mg PO DAILY [facility] Last Admin: 09/14/18 11:54 Dose: 200 mg Ergocalciferol (Drisdol 50,000 Intl Units Cap) 1 cap PO Q7D [facility] Last Admin: 09/14/18 17:43 Dose: 1 cap Insulin Human Regular (Humulin R Med) 0 units SC [facility]; Protocol Last Admin: 09/14/18 17:21 Dose: Not Given Levothyroxine Sodium (Synthroid) 125 mcg PO DAILY [facility] Last Admin: 09/14/18 11:53 Dose: 125 mcg Metoprolol Succinate (Toprol Xl) 100 mg PO DAILY [facility] Last Admin: 09/14/18 11:53 Dose: 100 mg Ondansetron HCl (Zofran Inj) 4 mg IVP Q6H PRN PRN Reason: Nausea/Vomiting Last Admin: 09/14/18 12:10 Dose: 4 mg Pantoprazole Sodium (Protonix Ec Tab) 40 mg PO 0600 [facility] Last Admin: 09/14/18 05:43 Dose: 40 mg Sodium Bicarbonate (Sodium Bicarbonate Tab) 650 mg PO Q8 [facility] Last Admin: 09/14/18 15:40 Dose: 650 mg - Labs Labs: 09/14/18 06:00 09/14/18 15:30 PT 14.1 SECONDS (9.4-12.5) H 09/13/18 10:40 INR 1.25 09/13/18 10:40 APTT 37.5 Seconds (26.9-38.3) 09/13/18 10:40 Assessment and Plan - Assessment and Plan (Free Text) Assessment: Pt was seen and examined. I agree with the note of the medical consultant. I have reviewed the medications and the labs. I have gone over the plan of care with the resident.
[2018-09-14 06:53] LABS: HEMOGLOBIN 8.5 g/dL (12.0-16.0); MEAN CELL VOLUME 84.1 fl (80.0-105.0); MEAN CORPUSCULAR HEMOGLOBIN 27.6 pg (25.0-35.0); MEAN CORPUSCULAR HGB CONC 32.8 g/dl (31.0-37.0); RBC 3.08 10^6/uL (3.5-6.1); RED CELL DISTRIBUTION WIDTH 15.1 % (11.5-14.5); WHITE BLOOD COUNT 11.1 10^3/uL (4.5-11.0)
[2018-09-14] MEDS: Insulin Reg-MEDIUM-Coverage SC SCH ×4 (07:13→22:19)
[2018-09-14 07:36] LABS: ALBUMIN 3.1 g/dL (3.0-4.8); CALCIUM 6.9 mg/dL (8.4-10.5)
[2018-09-14] MEDS ORDERED: DiphenhydrAMINE 50 mg/ml Inj ONE (08:42)
[2018-09-14] MEDS ORDERED: Iodixanol 320 MG/ML 200 ML BOTTLE IV ONE (08:42)
[2018-09-14] MEDS ORDERED: Lidocaine PF 2% (5 ml) Inj (For Cardiac Arrhy) ONE ×2 (08:42→09:07)
[2018-09-14] MEDS ORDERED: Potassium Chloride 20 mEq/15 ml LIQ UD ONE (08:53)
[2018-09-14] MEDS ORDERED: Midazolam 2 MG/2 ML VIAL ONE (09:14)
[2018-09-14 09:21] LABS: URINE CREATININE 32.4 mg/dL
[2018-09-14] MEDS ORDERED: Midazolam 2 MG/2 ML VIAL IVP ONE (10:05)
[2018-09-14] MEDS ORDERED: Sodium Chloride 0.45% 1,000 ML IV SCH (10:30)
[2018-09-14] MEDS: Metoprolol Succinate 100 mg XL Tab PO SCH (11:53)
[2018-09-14] MEDS: Levothyroxine 125 MCG TAB PO SCH (11:53)
[2018-09-14] MEDS: Potassium Chloride 20 mEq ER Tab PO SCH ×2 (11:54→15:40)
[2018-09-14] MEDS: Cefpodoxime (Vantin) 200 mg Tab PO SCH (11:54)
--- NOTE | 2018-09-14 14:44 | US ---
PROCEDURE: Right lower extremity venous US HISTORY: Leg pain and swelling. Evaluate for DVT. PHYSICIAN(S): Alexys Hull M.D. TECHNIQUE: Duplex sonography and color-flow Doppler with graded compression were used to evaluate the deep venous system of the right lower extremity. The exam is somewhat limited by body habitus and edema. FINDINGS: The visualized deep venous system of the right lower extremity is sonographically normal and compressible. Normal waveforms and augmentation are seen. There is no sonographic evidence for deep venous thrombosis in the visualized segments of the right lower extremity. IMPRESSION: 1. No sonographic evidence for deep venous thrombosis in the visualized segments of the right lower extremity.
[2018-09-14] MEDS ORDERED: Ergocalciferol 50,000 Intl Units Cap PO SCH (16:30)
--- NOTE | 2018-09-14 19:22 | PN ---
DATE: 09/14/2018 SUBJECTIVE: The patient is seen in the dialysis unit. She is awake. She is groggy. She just had a PermCath put in on and also she had a left kidney biopsy done. She is not complaining of any pain at this time. PHYSICAL EXAMINATION GENERAL: Morbidly obese elderly lady lying in bed in the dialysis unit. VITAL SIGNS: Blood pressure 145/68, heart rate 82, respiratory rate 20, temperature 98. HEENT: Normocephalic, atraumatic, positive pallor. NECK: Supple, no JVD. LUNGS: Bilateral equal air entry, bilateral equal expansion, no rales. CARDIAC: S1, S2, regular rate and rhythm, no murmur, no rub. ABDOMEN: Obese, distended, soft, nontender, bowel sounds present. EXTREMITIES: 2+ pitting edema of the lower extremities. INTAKE AND OUTPUT: 2245/1900. LABORATORY DATA: WBC 11, hemoglobin 8.5, hematocrit 26, platelets 405. Sodium 142, potassium 2.7, chloride 109, CO2 of 15, BUN 131, creatinine 9.8, glucose 111, calcium 6.9. Vitamin D less than 12.8, albumin 3.1. PTH 782. CURRENT MEDICATIONS: DuoNeb, insulin, Lipitor 10 mg, amlodipine 10 mg, Protonix, Rocaltrol 0.5 mg, sodium bicarbonate 650 mg p.o. every 8 hours, Synthroid 125 mcg, Toprol XL 100 mg, Tylenol, Vantin, Xanax, Zofran. ASSESSMENT 1. Acute kidney injury superimposed on chronic kidney disease, stage IV. 2. Nephrotic range proteinuria. 3. Severe secondary hyperparathyroidism. 4. Hypokalemia. 5. Severe anemia. 6. Well-controlled diabetes. 7. Long-term smoking/chronic obstructive pulmonary disease/right heart failure. 8. Hypertension. 9. Anxiety. PLAN 1. Followup proteinuria workup, ESR is 147, the patient had the biopsy today, ROSALINA is pending, complements are normal. 2. Seen at the start of first dialysis, no issues. 3. Dialysis again tomorrow with ultrafiltration 1 kg. 4. Continue Hectorol Calcitriol 0.5 mcg daily. 5. Drisdol 50,000 units once a month starting today. 6. Dialyzing with potassium 4 bath. 7. Will need dialysis at least for the short-term. Ainsley Sanford MD
--- NOTE | 2018-09-14 20:45 | VASCULAR ---
PROCEDURE: Ultrasound and fluoroscopic tunneled right IJ dialysis catheter. CLINICAL HISTORY: Acute on chronic renal failure. Proteinuria. Needs dialysis catheter PHYSICIAN(S): Alexys Hull M.D. TECHNIQUE: The relative risks and indications for the procedure were explained to the patient and informed written consent obtained. The patient was placed supine on the arteriography table and the right neck/chest was prepped and draped in the usual sterile fashion. 1% Xylocaine was used to anesthetize the skin and soft tissues at the puncture site. Conscious sedation and monitoring were provided throughout the procedure by a nurse. Under direct ultrasound guidance, the rightinternal jugular vein was punctured with a micropuncture set. A 0.035 Glidewire was advanced into the IVC. Sequential dilatation was performed with subsequent placement of a 28cm Nextgen catheter with its tip in the right atrium. A retrograde tunnel below the right clavicle was performed. The catheter was trimmed and the hub attached. Both ports aspirate and inject easily. The catheter was secured and a dressing applied. The patient tolerated the procedure well. IMPRESSION: 1. Ultrasound and fluoroscopically placed right IJ tunneled dialysis catheter.
--- NOTE | 2018-09-14 20:47 | CT ---
PROCEDURE: CT guided left renal cortex biopsy. HISTORY: Acute on chronic renal failure. Nephrostogram angio proteinuria. Needs renal cortex biopsy PHYSICIAN(S): Alexys Hull MD. TECHNIQUE: The relative risks and indications of the procedure were explained to the patient and consent obtained. The patient was placed prone on the CT scanner and preliminary images through the kidneys obtained. Conscious sedation and monitoring were provided throughout the procedure by a nurse. The limited noncontrast images of the kidneys are unremarkable.. A left posterior approach was selected and the area prepped and draped in the usual sterile fashion. 1% Xylocaine was used to anesthetize the skin and soft tissues. A 17-gauge guiding needle was advanced into the left lateral renal cortex. Its position was confirmed with CT. Using coaxial technique, multiple core biopsies were obtained. The postprocedure images show no evidence of significant hemorrhage. IMPRESSION: 1. CT-guided left renal cortex biopsy as described above.
--- NOTE | 2018-09-14 22:02 | PN ---
DATE: 09/14/2018 This is coverage for Dr. Rivera. HOSPITAL COURSE: Patient was seen and examined. I do agree with the note of the manager medical device. I was involved in the plan of care. Patient has acute kidney injury with CKD. She has nephrotic range proteinuria. She has non-anion gap metabolic acidosis. She has hypocalcemia. Patient is going to need a biopsy. She is being followed by Dr. Sanford. The patient is going to have hemodialysis catheter placed and most likely will need dialysis. The patient was noticed about the procedure. She does have lower extremity edema. She had an ultrasound of renal done that did not show significant abnormality. She is on sodium bicarb for metabolic acidosis. James Vance MD
[2018-09-15] MEDS: Albuterol-Ipratrop 3 mg / 0.5 (3 ml) UD IH SCH ×5 (01:38→20:30)
[2018-09-15] MEDS: Pantoprazole 40 mg EC Tab PO SCH (05:22)
[2018-09-15 07:10] LABS: HEMOGLOBIN 9.1 g/dL (12.0-16.0); MEAN CELL VOLUME 85.5 fl (80.0-105.0); MEAN CORPUSCULAR HGB CONC 32.7 g/dl (31.0-37.0); MEAN PLATELET VOLUME 9.5 fl (7.0-11.0); RBC 3.25 10^6/uL (3.5-6.1); RED CELL DISTRIBUTION WIDTH 15.3 % (11.5-14.5); WHITE BLOOD COUNT 9.2 10^3/uL (4.5-11.0)
[2018-09-15 07:21] LABS: ALBUMIN 3.2 g/dL (3.0-4.8); CALCIUM 7.2 mg/dL (8.4-10.5)
--- NOTE | 2018-09-15 08:21 | CP.PCM.PN ---
<Elvira Cotto - Last Filed: 09/15/18 10:06> Subjective - Date & Time of Evaluation Date of Evaluation: 09/15/18 Time of Evaluation: 07:10 - Subjective Subjective: IM resident progress note for Dr. Vance's service- covering for Dr. Rivera Patient with no acute events last night. Patient is s/p renal biopsy and and HD cath placement yesterday. Patient also had her first session of HD yesterday. Patient states the lower extremities edema has worsened. Denies cp, states the cough and sob has improved. No nausea, vomiting or diarrhea. Objective - Vital Signs/Intake and Output Vital Signs (last 24 hours): Temp Pulse Resp BP Pulse Ox 98.2 F 86 20 154/83 H 96 09/15/18 06:00 09/15/18 06:00 09/15/18 06:00 09/15/18 06:00 09/15/18 06:00 Intake and Output: 09/15/18 09/15/18 06:59 18:59 Intake Total 480 Output Total 400 Balance 80 - Medications Medications: Current Medications Acetaminophen (Tylenol 325mg Tab) 650 mg PO Q4H PRN PRN Reason: Pain, severe (8-10) Last Admin: 09/14/18 18:42 Dose: 650 mg Albuterol/Ipratropium (Duoneb 3 Mg/0.5 Mg (3 Ml) Ud) 3 ml IH [id number] [facility] Last Admin: 09/15/18 04:34 Dose: 3 ml Alprazolam (Xanax) 0.5 mg PO TID PRN; Protocol PRN Reason: Anxiety Last Admin: 09/14/18 21:12 Dose: 0.5 mg Amlodipine Besylate (Norvasc) 10 mg PO DAILY [facility] Last Admin: 09/14/18 11:54 Dose: 10 mg Atorvastatin Calcium (Lipitor) 10 mg PO DIN [facility] Last Admin: 09/14/18 17:43 Dose: 10 mg Calcitriol (Rocaltrol) 0.5 mcg PO DAILY [facility] Last Admin: 09/14/18 11:53 Dose: 0.5 mcg Camphor/Menthol (Bengay) 1 gm TOP QID PRN PRN Reason: Pain, Mild (1-3) Last Admin: 09/13/18 22:29 Dose: 1 dose Cefpodoxime Proxetil (Vantin) 200 mg PO DAILY [facility] Last Admin: 09/14/18 11:54 Dose: 200 mg Ergocalciferol (Drisdol 50,000 Intl Units Cap) 1 cap PO Q7D [facility] Last Admin: 09/14/18 17:43 Dose: 1 cap Insulin Human Regular (Humulin R Med) 0 units SC ACHS [facility]; Protocol Last Admin: 09/14/18 22:19 Dose: Not Given Levothyroxine Sodium (Synthroid) 125 mcg PO DAILY [facility] Last Admin: 09/14/18 11:53 Dose: 125 mcg Metoprolol Succinate (Toprol Xl) 100 mg PO DAILY [facility] Last Admin: 09/14/18 11:53 Dose: 100 mg Ondansetron HCl (Zofran Inj) 4 mg IVP Q6H PRN PRN Reason: Nausea/Vomiting Last Admin: 09/14/18 12:10 Dose: 4 mg Pantoprazole Sodium (Protonix Ec Tab) 40 mg PO 0600 [facility] Last Admin: 09/15/18 05:22 Dose: 40 mg Sodium Bicarbonate (Sodium Bicarbonate Tab) 650 mg PO Q8 [facility] Last Admin: 09/15/18 05:22 Dose: 650 mg - Labs Labs: 09/15/18 05:30 09/15/18 05:30 PT 14.1 SECONDS (9.4-12.5) H 09/13/18 10:40 INR 1.25 09/13/18 10:40 APTT 37.5 Seconds (26.9-38.3) 09/13/18 10:40 - Constitutional Appears: No Acute Distress - Head Exam Head Exam: ATRAUMATIC, NORMAL INSPECTION, NORMOCEPHALIC - Eye Exam Eye Exam: Normal appearance, PERRL. absent: Scleral icterus Pupil Exam: NORMAL ACCOMODATION - ENT Exam ENT Exam: Mucous Membranes Dry - Neck Exam Neck Exam: Normal Inspection - Respiratory Exam Respiratory Exam: Prolonged Expiratory Phase (mild), Wheezes, NORMAL BREATHING PATTERN. absent: Rales, Rhonchi, Respiratory Distress, Stridor - Cardiovascular Exam Cardiovascular Exam: REGULAR RHYTHM, RRR, +S1, +S2, Murmur. absent: Clicks, Diastolic murmur, Gallop, Irregular Rhythm, JVD, Rubs - GI/Abdominal Exam GI & Abdominal Exam: Soft, Normal Bowel Sounds. absent: Distended, Firm, Guarding, Rigid, Tenderness, Rebound Additional comments: + obese abdomen - Extremities Exam Extremities Exam: Pedal Edema (+ 3 eden, mild erythema on the right LE.), Tenderness - Back Exam Back Exam: NORMAL INSPECTION - Neurological Exam Neurological Exam: Alert, Awake, Oriented x3 - Psychiatric Exam Psychiatric exam: Normal Affect, Normal Mood - Skin Skin Exam: Dry, Normal Color, Warm Assessment and Plan - Assessment and Plan (Free Text) Assessment: 1- Acute bronchitis 2- Acute normocytic anemia- likely anemia due to CKD s/p transfusions 3- Non anion gap metabolic acidosis 4- Severe hypokalemia- resolved 5- Hypomagnesemia 5- ELIZABETH on CKD 6- Secondary hyperparathyroidism 7- NIDDM2 8- Nephrotic range proteinuria 3 gram- 9- Hypothyroidism 10-HLD 11- Eden Lower extremities pain and edema- DVT ruled out 12- Morbidly obese with BMI of 41 Plan: Patient is s/p renal biopsy and HD cath placement yesterday. Patient was started on HD yesterday, and is scheduled for another session today. Acidosis has improved with HD. For anemia, Hgb is been stable at around 8. On calcitriol, phoslo and drisdol for secondary hyperparatharoidism and vit D deficiency. On Norvasc and toprol xl for htn, synthroid for hypothyroidism, on Lipitor for hld. For lower extremities edema, u/s with no dvt, elevated the leg, and compression socks ordered, tylenol prn for pain. Patient is on vantin for acute bronchitis. Patient is also on duonebs. On xanax prn for anxiety. Will continue protonix for gi prophylaxis, and start heparin sc for DVT prophylaxis. Patient seen, examined and case discussed with Dr. Vance. <James Vance - Last Filed: 09/15/18 19:07> Objective - Vital Signs/Intake and Output Vital Signs (last 24 hours): Temp Pulse Resp BP Pulse Ox 98.2 F 86 20 176/62 H 96 09/15/18 06:00 09/15/18 06:00 09/15/18 06:00 09/15/18 11:43 09/15/18 06:00 - Medications Medications: Current Medications Acetaminophen (Tylenol 325mg Tab) 650 mg PO Q4H PRN PRN Reason: Pain, severe (8-10) Last Admin: 09/14/18 18:42 Dose: 650 mg Albuterol/Ipratropium (Duoneb 3 Mg/0.5 Mg (3 Ml) Ud) 3 ml IH [id number] [facility] Last Admin: 09/15/18 08:51 Dose: 3 ml Alprazolam (Xanax) 0.5 mg PO TID PRN; Protocol PRN Reason: Anxiety Last Admin: 09/14/18 21:12 Dose: 0.5 mg Amlodipine Besylate (Norvasc) 10 mg PO DAILY [facility] Last Admin: 09/15/18 11:43 Dose: 10 mg Atorvastatin Calcium (Lipitor) 10 mg PO DIN [facility] Last Admin: 09/15/18 17:33 Dose: 10 mg Calcitriol (Rocaltrol) 0.5 mcg PO DAILY [facility] Last Admin: 09/15/18 11:43 Dose: 0.5 mcg Calcium Acetate (Phoslo) 667 mg PO WM [facility] Last Admin: 09/15/18 18:02 Dose: Not Given Camphor/Menthol (Bengay) 1 gm TOP QID PRN PRN Reason: Pain, Mild (1-3) Last Admin: 09/13/18 22:29 Dose: 1 dose Cefpodoxime Proxetil (Vantin) 200 mg PO DAILY [facility] Last Admin: 09/15/18 11:43 Dose: 200 mg Ergocalciferol (Drisdol 50,000 Intl Units Cap) 1 cap PO Q7D [facility] Last Admin: 09/14/18 17:43 Dose: 1 cap Heparin Sodium (Porcine) (Heparin) 5,000 units SC Q8 [facility]; Protocol Last Admin: 09/15/18 14:51 Dose: Not Given Insulin Human Regular (Humulin R Med) 0 units SC ACHS [facility]; Protocol Last Admin: 09/15/18 16:51 Dose: Not Given Levothyroxine Sodium (Synthroid) 125 mcg PO DAILY [facility] Last Admin: 09/15/18 11:43 Dose: 125 mcg Metoprolol Succinate (Toprol Xl) 100 mg PO DAILY [facility] Last Admin: 09/15/18 11:43 Dose: 100 mg Ondansetron HCl (Zofran Inj) 4 mg IVP Q6H PRN PRN Reason: Nausea/Vomiting Last Admin: 09/14/18 12:10 Dose: 4 mg Pantoprazole Sodium (Protonix Ec Tab) 40 mg PO 0600 [facility] Last Admin: 09/15/18 05:22 Dose: 40 mg - Labs Labs: 09/15/18 05:30 09/15/18 05:30 PT 14.1 SECONDS (9.4-12.5) H 09/13/18 10:40 INR 1.25 09/13/18 10:40 APTT 37.5 Seconds (26.9-38.3) 09/13/18 10:40 Assessment and Plan - Assessment and Plan (Free Text) Plan: Pt was seen and examined. I agree with the note of the medical secretary. I was involved in the plan of care.
[2018-09-15] MEDS: Insulin Reg-MEDIUM-Coverage SC SCH ×4 (10:31→21:22)
--- NOTE | 2018-09-15 10:44 | PN ---
DATE: 09/15/2018 SUBJECTIVE: The patient is currently seen in dialysis. She is receiving her second treatment. She had an uneventful kidney biopsy yesterday, results are pending at this time. Her BUN and creatinine remain elevated and the patient is receiving her second dialysis treatment. She is more edematous in her lower extremity. MEDICATIONS: List reviewed. The patient is currently on Gene-Chavez, vitamin D, DuoNeb, insulin, Norvasc, Lipitor, Protonix, Rocaltrol, oral sodium bicarbonate, Synthroid, Toprol, p.r.n. Tylenol, Vantin, Xanax and Zofran p.r.n. OBJECTIVE INTAKE/OUTPUT: Intake is 510, output is 400+, yesterday's dialysis. VITAL SIGNS: Blood pressure 154/83, temperature 98.2, pulse of 86, respiratory rate of 20. Oxygen saturation is 96%. HEENT: Shows her to be normocephalic, atraumatic. Conjunctivae are pale. Sclerae are nonicteric. NECK: Supple. No neck vein distention. CHEST: Clear to auscultation and percussion. No rales, rhonchi or wheezing. CARDIOVASCULAR: Shows a normal S1, S2. No S3, no S4, no rub. Positive PermCath, right chest wall. ABDOMEN: Soft. Mild obesity. Bowel sounds normal. No rebound, guarding or masses. EXTREMITIES: Show 1 to 2+ pitting edema of the lower extremity bilaterally. No cyanosis or clubbing. NEUROLOGIC: Shows her be alert, oriented x3 with no asterixis noted. LABORATORY DATA AND IMAGING STUDIES: CBC; white blood cell count 9.2, hemoglobin 9.1 with a platelet count of 406,000. The patient has received a total of 3 units of packed red blood cells. Chemistries; sodium 143, potassium 3.6, chloride 108 with a CO2 of 20. BUN 93 with a creatinine of 7.7. Glucose is 136. Calcium 7.2 with a phosphorus of 7.8. Magnesium level of 1.6. Urine show 3+ protein. Creatinine clearance was 5 mL per minute with 3.015 g of protein in the urine. ROSALINA is negative. C4 is elevated. C3 is normal. Immunoglobulins show a low IgG level. Hepatitis serologies are negative. ASSESSMENT 1. Acute renal failure superimposed on chronic kidney disease, stage IV. The patient's baseline creatinine as per Dr. Sanford had been in the 4 range. She is spilling 3 g of protein in the urine. Unclear to me at the time of dictation whether she has had any type of serological workup in the outpatient setting. She did have a renal biopsy, these results are pending. The patient is receiving a second dialysis treatment because of her rising BUN and creatinine and a severe metabolic acidosis. 2. Severe anemia, status post 3 units of packed red blood cells with a hemoglobin, which is now in an acceptable range. 3. History of chronic obstructive pulmonary disease, history of bronchitis. The patient appears to be stable. 4. History of noninsulin-dependent diabetes mellitus. 5. History of hypertensive nephrosclerosis. 6. Secondary hyperparathyroidism. The patient will continue her renal diet and start on binder therapy. PLAN 1. Await results of renal biopsy. 2. Continue to support the patient with dialysis. 3. May discontinue oral sodium bicarbonate supplements. 4. Avoid all nephrotoxic agents. Noah Araiza MD
[2018-09-15] MEDS ORDERED: Magnesium Sulfate 1 gm in D5W 1 GM/100 ML BAG IVPB ONE (11:15)
[2018-09-15] MEDS: Cefpodoxime (Vantin) 200 mg Tab PO SCH (11:43)
[2018-09-15] MEDS: Metoprolol Succinate 100 mg XL Tab PO SCH (11:43)
[2018-09-15] MEDS: Levothyroxine 125 MCG TAB PO SCH (11:43)
--- NOTE | 2018-09-15 22:02 | PN ---
DATE: 09/15/2018 SUBJECTIVE: The patient was seen and examined. I do agree with the note of the manager medical. This is coverage for Dr. Rivera. The patient has a hemodialysis catheter and had a biopsy. She had dialysis done yesterday. She is going to be scheduled for dialysis again today. The patient has lower extremity edema, will most likely need more fluid removal. She is currently comfortable. She has been eating well. She has hypomagnesemia. She is receiving Synthroid for hypothyroidism. She is on Norvasc for hypertension. She wants to continue with dyslipidemia medications. James Vance MD
[2018-09-16] MEDS: Albuterol-Ipratrop 3 mg / 0.5 (3 ml) UD IH SCH ×5 (02:50→20:16)
[2018-09-16] MEDS: Pantoprazole 40 mg EC Tab PO SCH (05:57)
[2018-09-16] MEDS: Insulin Reg-MEDIUM-Coverage SC SCH ×4 (08:00→22:31)
[2018-09-16 08:29] LABS: HEMOGLOBIN 9.3 g/dL (12.0-16.0); MEAN CORPUSCULAR HEMOGLOBIN 27.8 pg (25.0-35.0); MEAN CORPUSCULAR HGB CONC 31.6 g/dl (31.0-37.0); MEAN PLATELET VOLUME 9.4 fl (7.0-11.0); RBC 3.34 10^6/uL (3.5-6.1); RED CELL DISTRIBUTION WIDTH 15.4 % (11.5-14.5); WHITE BLOOD COUNT 7.9 10^3/uL (4.5-11.0)
[2018-09-16 08:44] LABS: ALB/GLOB RATIO 0.9 (1.1-1.8); ALBUMIN 3.1 g/dL (3.0-4.8)
[2018-09-16] MEDS: Cefpodoxime (Vantin) 200 mg Tab PO SCH (10:06)
[2018-09-16] MEDS: Levothyroxine 125 MCG TAB PO SCH (10:07)
[2018-09-16] MEDS: Metoprolol Succinate 100 mg XL Tab PO SCH (10:11)
--- NOTE | 2018-09-16 14:36 | PN ---
DATE: 09/16/2018 SUBJECTIVE: The patient is currently seen sitting in her room on 3R. She appears to be as feisty as ever. She terminated dialysis early yesterday. One liter of fluid was removed with dialysis yesterday. The patient is asking whether or not she is going to need chronic dialysis or whether or not we could fix her kidney problem. She still continues to complain of edema, which is in her right leg. She did have a negative ultrasound for a DVT. MEDICATIONS: Medication list reviewed. The patient is currently on Bengay, vitamin D, DuoNeb, heparin, insulin, Norvasc, PhosLo, Protonix, Rocaltrol, Synthroid, Toprol, Tylenol p.r.n., Vantin, Xanax, and Zofran. OBJECTIVE: INTAKE AND OUTPUT: Intake is 690, output is 1220 mL of urine and 1000 mL with dialysis. Today's weight is pending. VITAL SIGNS: Blood pressure 156/66, temperature 98.3, respiratory rate 20 with a pulse of 83, oxygen saturation is 95%. HEENT: Normocephalic, atraumatic. Conjunctivae are pale. Sclerae are nonicteric. NECK: Supple. No neck vein distention. CHEST: Clear to auscultation and percussion with no rales, rhonchi, or wheezing. CARDIOVASCULAR: Regular rate and rhythm. No S3, no S4. No rub. Positive PermCath, right chest wall. ABDOMEN: Soft. Mild obesity. Bowel sounds normal. No rebound, guarding, or masses. EXTREMITIES: 1+ pitting edema, right greater than left. No cyanosis or clubbing. NEUROLOGIC: Alert, oriented, very feisty. No asterixis. LABORATORY DATA AND IMAGING: Today's labs: CBC: White blood cell count 7.9, hemoglobin stable at 9.2 with a platelet count of 412,000. Chemistries show potassium of 3.5 today, she did dialyze yesterday on a low-K bath. BUN is 56 and creatinine is 6.3. Glucose is 138 with a calcium of 8, yesterday's phosphorus was elevated at 7.8 and the patient remains on binder therapy with a renal diet. Microbiology: All blood cultures are negative at four days. Pathology: Pending at this point of time is the renal biopsy. Serology is negative. ROSALINA compliment values are not low. ASSESSMENT: 1. Acute renal failure superimposed on chronic kidney disease, stage IV. The patient's apparent outpatient baseline creatinine had been in the 4 range. The patient is spilling 3 g of protein in her urine. Discussed with the patient the possibility of finding some reversible disease on the kidney biopsy and if we are not successful, in all likelihood she will go on to require chronic dialysis. The patient is not happy about that prospect. Her metabolic acidosis has cleared. 2. Status post severe anemia, hemoglobin is now stable. She is status post transfusion of 3 units of packed red blood cells. Her hemoglobin presently is 9.3 and stable. 3. History of chronic obstructive pulmonary disease, history of bronchitis. This appears to be stable. The patient continues on oral cephalosporin therapy. 4. History of [id number] diabetes mellitus. She remains on sliding scale insulin. 5. History of hypertensive nephrosclerosis. 6. History of secondary hyperparathyroidism with elevated phosphorus level. The patient is now following a renal diet and she has been started on binder therapy. PLAN: 1. Discussed with the patient the dialysis schedule. Right now, she remains on a Monday, , Monday dialysis schedule. No dialysis plan for tomorrow. 2. Hoping to have preliminary results back on the renal biopsy tomorrow, at which point in time we can make decisions with the patient and discuss all options. 3. The patient is not excited about the prospect of staying on chronic maintenance outpatient dialysis. 4. Continue present blood pressure medications. 5. Reviewed with the patient the results of her lower extremity Doppler study which showed no deep venous thrombosis. Encouraged her to elevate her legs and continue to wear compression stockings. Noah Araiza MD
--- NOTE | 2018-09-17 00:18 | PN ---
DATE: 09/16/2018 SUBJECTIVE: A 72-year-old white female admitted to the hospital with acute renal failure with chronic renal insufficiency, dependent diabetes mellitus, hypertension, and morbid obesity. The patient is status post renal biopsy, status post acute hemodialysis x2 and port catheter insertion. The patient is tolerating her dialysis well. She also transfused 3 units of blood up to a hemoglobin of 9.3. White count is normal at 7.9. BUN and creatinine down to 56 and 6.3 from a total of 138 and 10. OBJECTIVE: GENERAL: The patient is a well-developed, but obese white female with cough and rhonchi bilaterally. HEART: Regular sinus rhythm. EXTREMITIES: Show 1 to 2+ pedal edema. ABDOMEN: No CVA tenderness. Abdomen is obese, but benign. ASSESSMENT AND PLAN: Plan is to continue phosphate binders, blood sugar control, and blood pressure control. Check for biopsy results. Continue hydration. Continue acute dialysis as needed and also to continue steroids for treatment of possible acute glomerulonephritis. Kushal Rivera MD
[2018-09-17] MEDS: Albuterol-Ipratrop 3 mg / 0.5 (3 ml) UD IH SCH ×4 (02:52→21:05)
[2018-09-17] MEDS: Pantoprazole 40 mg EC Tab PO SCH (05:15)
[2018-09-17 07:31] LABS: ALB/GLOB RATIO 0.9 (1.1-1.8); ALBUMIN 2.8 g/dL (3.0-4.8); CALCIUM 8.4 mg/dL (8.4-10.5)
[2018-09-17] MEDS: Levothyroxine 125 MCG TAB PO SCH (09:07)
[2018-09-17] MEDS: Metoprolol Succinate 100 mg XL Tab PO SCH (09:07)
[2018-09-17] MEDS: Cefpodoxime (Vantin) 200 mg Tab PO SCH (09:08)
[2018-09-17] MEDS: Insulin Reg-MEDIUM-Coverage SC SCH ×4 (11:30→21:47)
[2018-09-17] MEDS: Potassium Chloride 20 mEq ER Tab PO SCH (13:12)
--- NOTE | 2018-09-17 13:15 | PN ---
DATE: 09/17/2018 SUBJECTIVE: A 72-year-old white female admitted to the hospital with acute renal failure, hyperphosphatemia, secondary hyperparathyroidism, poorly controlled insulin-dependent diabetes mellitus, hypertension. The patient is status post hemodialysis x2 status post renal biopsy pending today, decreased swelling. The patient is still able to make between 400 to 600 mL of urine a day. PHYSICAL EXAMINATION: VITAL SIGNS: Stable. She is afebrile. LABORATORY DATA: Blood sugar today is 127. BUN and creatinine are 59 and 6.6, potassium 3.2. Hemoglobin is up to 9.3. ASSESSMENT AND PLAN: She is status post three units of blood. Kushal Rivera MD
--- NOTE | 2018-09-17 16:32 | PN ---
DATE: 09/17/2018 SUBJECTIVE: The patient is seen sitting in chair. She is awake, she is alert. She is comfortable. She denies any shortness of breath. She still has a bad cough. PHYSICAL EXAMINATION: GENERAL: Obese elderly lady sitting in chair. VITAL SIGNS: Blood pressure 153/74, heart rate 87, respiratory rate 20, temperature 98.1. HEENT: Normocephalic, atraumatic, positive pallor. NECK: Supple, no JVD. LUNGS: Bilateral equal air entry, bilateral equal expansion, no rales. CARDIAC: S1 and S2, regular rate and rhythm, no murmur, no rub. ABDOMEN: Obese, distended, soft, nontender, bowel sounds present. EXTREMITIES: No lower extremity edema. Intake and output 1320/1400. LABORATORY DATA: WBC 7.9, hemoglobin 9.3, hematocrit 29, platelets 412. Sodium 144, potassium 3.2, chloride 108, CO2 of 24, BUN 59, creatinine 6.6, glucose 127, calcium 8.4, AST 22, ALT 17, albumin 2.8. Creatinine clearance 5 mL per minute. Urine protein 3 g. IgM less than 25, IgG 589. ROSALINA negative. CURRENT MEDICATIONS: Vitamin D 50,000 units once a week, DuoNeb, heparin, insulin, Lipitor 10, amlodipine 10, PhosLo with meals, Protonix, Rocaltrol 0.5, Synthroid 125, Toprol XL 100, Tylenol, Xanax, Zofran, and Vantin. ASSESSMENT: 1. Acute kidney injury superimposed on chronic kidney disease stage IV. 2. Nephrotic range proteinuria in the setting of well-controlled diabetes with no diabetic retinopathy. 3. Status post severe anemia, status post blood transfusion times three units. 4. Severe secondary hyperparathyroidism. 5. Hypocalcemia/hyperphosphatemia. 6. Bdm-oepefzx-mwevulvuj diabetes mellitus, well controlled. 7. Hypertension. 8. Severe chronic obstructive pulmonary disease. PLAN: 1. The patient had a kidney biopsy done on Monday, we will follow up results, nothing is available yet. 2. The patient was dialyzed on Monday and Monday, next dialysis will be tomorrow. 3. Continue current antihypertensives. 4. Check ANCA.. Outpatient dialysis to be arranged at [facility] on Monday, Monday, and Monday. Discussed with the patient and discussed with social worker psychiatric. 5. Continue current antihypertensives. 6. Continue vitamin D once a week. 7. Continue calcitriol 0.5 mcg daily. 8. Continue Xanax for anxiety. 9. Long time spent counseling the patient regarding the plan. Ainsley Sanford MD
[2018-09-18] MEDS: Albuterol-Ipratrop 3 mg / 0.5 (3 ml) UD IH SCH ×4 (02:30→20:45)
[2018-09-18] MEDS: Pantoprazole 40 mg EC Tab PO SCH (05:22)
[2018-09-18 08:44] LABS: HEMOGLOBIN 8.7 g/dL (12.0-16.0); MEAN CELL VOLUME 90.5 fl (80.0-105.0); MEAN CORPUSCULAR HEMOGLOBIN 27.6 pg (25.0-35.0); MEAN CORPUSCULAR HGB CONC 30.5 g/dl (31.0-37.0); MEAN PLATELET VOLUME 9.3 fl (7.0-11.0); RBC 3.15 10^6/uL (3.5-6.1); RED CELL DISTRIBUTION WIDTH 14.9 % (11.5-14.5); WHITE BLOOD COUNT 6.7 10^3/uL (4.5-11.0)
[2018-09-18 09:00] LABS: ALBUMIN 3.2 g/dL (3.0-4.8); CALCIUM 8.9 mg/dL (8.4-10.5)
[2018-09-18] MEDS: Insulin Reg-MEDIUM-Coverage SC SCH ×4 (09:07→21:28)
[2018-09-18] MEDS: Levothyroxine 125 MCG TAB PO SCH (09:11)
[2018-09-18] MEDS: Potassium Chloride 20 mEq ER Tab PO SCH (09:11)
[2018-09-18] MEDS: Metoprolol Succinate 100 mg XL Tab PO SCH (10:43)
--- NOTE | 2018-09-18 10:52 | PN ---
DATE: 09/18/2018 SUBJECTIVE: A 72-year-old white female with acute renal failure with chronic renal insufficiency, diabetes mellitus and hypertension. The patient is status post biopsy, status post transfusion of 3 units, and status post two acute hemodialysis treatments, awaiting biopsy results. The patient is on steroids and hydration. Blood pressure controlled. Blood sugar controlled. She feels much improved today. PHYSICAL EXAMINATION VITAL SIGNS: Stable. She is afebrile. Blood pressure is down to 158/71. CHEST: Clear to auscultation and percussion. HEART: Regular sinus rhythm. EXTREMITIES: Showed decreased edema bilaterally. LABORATORY DATA: BUN and creatinine 59 and 6.6 and potassium is 3.2. Hemoglobin is up to 9.3. ASSESSMENT AND PLAN: Plan is to await results of kidney biopsy, possible acute hemodialysis treatment, and eventually discussion with Dr. Sanford as far as treatment of her underlying acute renal failure. Kushal Rivera MD
[2018-09-18] MEDS ORDERED: Darbepoetin Alfa 100 mcg/ml Inj IVP ONE (11:46)
--- NOTE | 2018-09-18 18:09 | PN ---
DATE: 09/18/2018 SUBJECTIVE: The patient has just returned from hemodialysis, 1.8 liters of fluid were removed. She has a significant decrease in her lower extremity edema. The initial report back on the renal biopsy shows only one glomerulus with mostly medulla. Further studies of the glomerulus are pending but it appears that the patient has diabetic nephropathy and if that is the case, she will likely go on to need chronic dialysis. The patient and I had a discussion about options regarding dialysis. The patient would like to go to the [facility] dialysis unit in [place]. MEDICATIONS: Medication list reviewed. The patient is currently on Gene-Chavez, vitamin D, DuoNeb, heparin, insulin, potassium, Lipitor, Norvasc, PhosLo, Protonix, Rocaltrol, Synthroid, Toprol, Tylenol p.r.n., Xanax p.r.n. and Zofran p.r.n. OBJECTIVE: INTAKE/OUTPUT: Intake is 1060, output is 700. VITAL SIGNS: Blood pressure 160/76, temperature 98.8, respiratory rate 20 with a pulse of 89. HEENT: Exam shows her to be normocephalic, atraumatic. Conjunctivae remain pale. Sclerae nonicteric. NECK: Supple. No neck vein distention. CHEST: Clear to auscultation and percussion with no rales, rhonchi or wheezing. CARDIOVASCULAR: Shows a regular rate and rhythm. No S3, no S4, no rub. She has a PermCath in her right chest wall. ABDOMEN: Soft. Bowel sounds normal. No rebound, guarding or masses. EXTREMITIES: Show trace pitting edema of her lower extremity, right greater than left. No cyanosis or clubbing. NEURO: Shows her be alert, oriented with no focal deficits and no asterixis. LABORATORY DATA AND IMAGING STUDIES: CBC; today white blood cell count 6.7, hemoglobin 8.7 slightly lower from the previous result. Platelet count is 367,000. Chemistries show potassium of 3.4, sodium of 141, BUN is 61 with a creatinine of 7.2. Glucose is 130. Calcium is 8.9. Phosphorus is 6.4 with a magnesium level of 1.5. Liver enzymes are normal. Microbiology, all blood cultures are negative. ASSESSMENT: 1. Likely progression of chronic kidney disease stage IV, now with end-stage renal disease. It appears that there are no significant acute findings. Perhaps a mild component of acute tubular necrosis, but it does appear that she has underlying diabetic nephropathy in her kidney. This would account for her significant proteinuria. The patient is spilling in excess of 3 g of protein. The patient and I did discuss the likelihood that she will need outpatient dialysis. In all likelihood this will probably be chronic outpatient dialysis. She is agreeable to go to the [facility] in [place]. 2. Status post severe anemia. Hemoglobin is stable in the 8 to 9 range. She is status post transfusion of 3 units of packed red blood cells. 3. History of chronic obstructive pulmonary disease, history of bronchitis. All appears to be stable. The patient is off cephalosporin therapy. 4. History of diabetes mellitus. She is currently on sliding scale insulin. 5. History of hypertensive nephrosclerosis, currently stable. 6. History of secondary hyperparathyroidism. The patient's phosphorus level is 6.4. The patient remains on binder therapy with PhosLo and she continues a renal diet. PLAN: 1. Discussed with the patient, we will probably be able to give her more insight into the renal biopsy, once we have the final reports back from the different laboratories, immunofluorescence and from electro microscopy. But in all likelihood, she has underlying chronic diabetic kidney disease with a possible small component for ATN. 2. Continue three times a week dialysis. 3. We will have social media specialist be in touch with [facility] in [place] to set up outpatient dialysis. 4. Continue present blood pressure medications and continue sliding scale insulin for her diabetes. Noah Araiza MD
[2018-09-19] MEDS: Albuterol-Ipratrop 3 mg / 0.5 (3 ml) UD IH SCH ×4 (01:12→19:44)
[2018-09-19] MEDS: Pantoprazole 40 mg EC Tab PO SCH (05:31)
[2018-09-19] MEDS: Insulin Reg-MEDIUM-Coverage SC SCH ×4 (07:34→21:39)
[2018-09-19] MEDS: Levothyroxine 125 MCG TAB PO SCH (07:36)
[2018-09-19] MEDS: Potassium Chloride 20 mEq ER Tab PO SCH (07:36)
[2018-09-19 08:37] VITALS: RESP 20
[2018-09-19] MEDS: POLYETHYLENE GLYCOL 3350 17 GM/Dose PACKET PO SCH ×2 (10:40→17:29)
[2018-09-19] MEDS: Metoprolol Succinate 100 mg XL Tab PO SCH (10:40)
--- NOTE | 2018-09-19 12:50 | PN ---
DATE: 09/19/2018 SUBJECTIVE: A 72-year-old white female admitted to the hospital with acute renal failure on top of chronic renal insufficiency, biopsy proven diabetic nephropathy. Still are pending some glomerular examinations to be done status post third acute hemodialysis, status post transfusion because of severe anemia. The patient has had 3 units of packed red blood cells transfused. Her BUN and creatinine are 61 and 7.2, potassium 3.4, blood sugar is 203. Hemoglobin is down to 8.7, hematocrit 28.5. PHYSICAL EXAMINATION: CHEST: Clear to auscultation and percussion. HEART: Regular sinus rhythm. EXTREMITIES: Decreased edema. ASSESSMENT AND PLAN: The patient is less congested, less cough, less shortness of breath, less swelling, . There is fluid removed yesterday. She did have some creatinine post dialysis. She is contemplating long-term dialysis and deciding on a dialysis unit. We will continue to follow up on the biopsy and also complaining of some constipation. We will treat with MiraLax. She was also on phosphate binders and Colace. Kushal Rivera MD
[2018-09-19 22:19] LABS: ANCA SCREEN NEGATIVE (NEGATIVE)
--- NOTE | 2018-09-19 22:20 | PN ---
DATE: 09/19/2018 SUBJECTIVE: The patient is seen sitting in chair. She is awake, she is alert, and she is comfortable. She still has cough. She denies any chest pain. She denies any palpitations. She denies any nausea or vomiting. PHYSICAL EXAMINATION: GENERAL: Obese elderly lady, sitting in chair. VITAL SIGNS: Blood pressure 146/69, heart rate 81, respiratory rate 20, and temperature 98.6. HEENT: Normocephalic, atraumatic, positive pallor. NECK: Supple. No JVD. LUNGS: Bilateral equal entry, bilaterally equal expansion, no rales, and no rhonchi. CARDIAC: S1 and S2, regular rate and rhythm, no murmur, and no rub. ABDOMEN: Obese, distended, soft, nontender, bowel sounds present. EXTREMITIES: No lower extremity edema. LABORATORY DATA: WBC 6.7, hemoglobin 8.7, hematocrit 28.5, and platelets 367. Sodium 141, potassium 3.4, chloride 108, CO2 of 23, BUN 61, creatinine 7.2, glucose 203, calcium 8.9, phosphorus 6.4, magnesium 1.5, albumin 3.2, and globulin 3. CURRENT MEDICATIONS: DuoNeb, heparin, potassium 20 mEq, Lipitor, MiraLax, amlodipine 10 mg, PhosLo 667 mg, Protonix, Rocaltrol, Synthroid, Toprol-XL, Tylenol, Xanax, and Zofran. ASSESSMENT: 1. Acute kidney injury superimposed on chronic kidney disease stage 4. Her creatinine was 3.5 in 06/2018. Subsequently, there was a rapid increase in creatinine. The patient had a kidney biopsy done. Unfortunately, there was only one glomerulus. The patient's electron microscopy on the biopsy showed a lot of immune complexes. Discussed with the patient need for repeat biopsy. The patient is agreeable. 2. Severe anemia, suspect gastrointestinal blood loss. The patient is not willing for a colonoscopy. 3. Underlying chronic kidney disease stage 4. 4. Secondary hyperparathyroidism. 5. Hyperphosphatemia. 6. Mib-wmnjebu-uqkjzjboj diabetes mellitus, well controlled. 7. Hypertension. 8. Chronic obstructive pulmonary disease, long-term smoking history. 9. Hypothyroidism. 10. Hypocalcemia, resolved. PLAN: 1. Dialysis tomorrow. 2. Discussed with the patient repeat biopsy. The patient is agreeable, discussed with Dr. Alexys Hull. He is unable to do the biopsy until Monday. Perhaps, we will discharge the patient home after biopsy on Monday. 3. Continue phosphate binders. 4. Continue vitamin D once a week. 5. Continue Rocaltrol 0.5 mcg, we will change it to every other day. 6. Monitor fingersticks and continue insulin coverage. 7. Continue Synthroid. 8. Long discussion with the patient and daughter at bedside. Ainsley Sanford MD
[2018-09-20] MEDS: Albuterol-Ipratrop 3 mg / 0.5 (3 ml) UD IH SCH ×3 (01:06→13:53)
[2018-09-20] MEDS: Pantoprazole 40 mg EC Tab PO SCH (06:23)
[2018-09-20] MEDS: Insulin Reg-MEDIUM-Coverage SC SCH ×2 (08:12→13:04)
[2018-09-20] MEDS: Levothyroxine 125 MCG TAB PO SCH ×2 (08:14→12:51)
[2018-09-20] MEDS: Potassium Chloride 20 mEq ER Tab PO SCH ×2 (08:15→13:04)
[2018-09-20 08:58] VITALS: TEMP 98.5; O2SAT 94
[2018-09-20 09:04] LABS: HEMOGLOBIN 8.7 g/dL (12.0-16.0); MEAN CELL VOLUME 90.5 fl (80.0-105.0); MEAN CORPUSCULAR HEMOGLOBIN 27.5 pg (25.0-35.0); MEAN CORPUSCULAR HGB CONC 30.4 g/dl (31.0-37.0); MEAN PLATELET VOLUME 9.9 fl (7.0-11.0); RBC 3.16 10^6/uL (3.5-6.1); RED CELL DISTRIBUTION WIDTH 14.6 % (11.5-14.5); WHITE BLOOD COUNT 7.3 10^3/uL (4.5-11.0)
[2018-09-20 09:20] LABS: ALB/GLOB RATIO 1.1 (1.1-1.8); ALBUMIN 3.2 g/dL (3.0-4.8); CALCIUM 9.3 mg/dL (8.4-10.5)
--- NOTE | 2018-09-20 11:13 | PN ---
DATE: 09/20/2018 SUBJECTIVE: A 73-year-old white female, admitted to the hospital with insulin-dependent diabetes mellitus, hypertension, acute renal failure on top of chronic renal insufficiency. The patient had renal biopsy with multiple new complexes. The patient is going to have a second biopsy for increased yield. She is on acute dialysis. The patient had three dialysis. She is going to have dialysis today. She is also anemic was transfuse. Hemoglobin currently is 8.7. BUN and creatinine is 61 and 7.2, potassium is 3.4 and blood sugar is 203. Vital signs are stable. The patient is amenable to repeat biopsy. hemodialysis and probably discharge at that point. Kushal Rivera MD
[2018-09-20] MEDS: POLYETHYLENE GLYCOL 3350 17 GM/Dose PACKET PO SCH (12:52)
[2018-09-20] MEDS: Metoprolol Succinate 100 mg XL Tab PO SCH (12:56)
[2018-09-20 13:01] VITALS: BP 136/79; PULSE 102
== END 2018-09-20 16:29 | disposition home or self-care (01) | DRG 674 ==
LOC: ED 08:36 → ERH 11:32 → 3RSO 14:15
PROVIDERS: ADMIT Internal Medicine; ATTEND Internal Medicine
PROC: 30233N1 Transfusion of Nonautologous Red Blood Cells into Peripheral Vein, Percutaneous Approach (ICD-10-PCS; 2018-09-12)
PROC: 3E0F7GC Introduction of Other Therapeutic Substance into Respiratory Tract, Via Natural or Artificial Opening (ICD-10-PCS; 2018-09-12)
PROC: 0TB13ZX Excision of Left Kidney, Percutaneous Approach, Diagnostic (ICD-10-PCS; 2018-09-14)
PROC: 02H633Z Insertion of Infusion Device into Right Atrium, Percutaneous Approach (ICD-10-PCS; 2018-09-14)
PROC: B214YZZ Fluoroscopy of Right Heart using Other Contrast (ICD-10-PCS; 2018-09-14)
PROC: 5A1D70Z Performance of Urinary Filtration, Intermittent, Less than 6 Hours Per Day (ICD-10-PCS; 2018-09-14)
PROC: 0JH63XZ Insertion of Tunneled Vascular Access Device into Chest Subcutaneous Tissue and Fascia, Percutaneous Approach (ICD-10-PCS; principal; 2018-09-14 08:30)
PROC: 5A1D70Z Performance of Urinary Filtration, Intermittent, Less than 6 Hours Per Day (ICD-10-PCS; 2018-09-15)
PROC: 5A1D70Z Performance of Urinary Filtration, Intermittent, Less than 6 Hours Per Day (ICD-10-PCS; 2018-09-18)
PROC: 5A1D70Z Performance of Urinary Filtration, Intermittent, Less than 6 Hours Per Day (ICD-10-PCS; 2018-09-20)
DX: N17.0 Acute kidney failure with tubular necrosis (principal); I13.2 Hypertensive heart and chronic kidney disease with heart failure and with stage 5 chronic kidney disease, or end stage renal disease; E87.2 Acidosis; J44.1 Chronic obstructive pulmonary disease with (acute) exacerbation; J44.0 Chronic obstructive pulmonary disease with (acute) lower respiratory infection; Z68.41 Body mass index [BMI] 40.0-44.9, adult; N18.6 End stage renal disease; N25.81 Secondary hyperparathyroidism of renal origin; E11.65 Type 2 diabetes mellitus with hyperglycemia; E11.22 Type 2 diabetes mellitus with diabetic chronic kidney disease; E11.21 Type 2 diabetes mellitus with diabetic nephropathy; J20.9 Acute bronchitis, unspecified; E86.0 Dehydration; D50.9 Iron deficiency anemia, unspecified; D63.1 Anemia in chronic kidney disease; E03.9 Hypothyroidism, unspecified; E66.01 Morbid (severe) obesity due to excess calories; E87.6 Hypokalemia; E83.42 Hypomagnesemia; E83.51 Hypocalcemia; F41.9 Anxiety disorder, unspecified; E78.5 Hyperlipidemia, unspecified; Z79.4 Long term (current) use of insulin; K59.00 Constipation, unspecified; Z87.891 Personal history of nicotine dependence

== ENCOUNTER 2018-09-26 12:14 | Day surgery (SDC) | payer MEDICARE, OTHER ==
[2018-09-24 17:43] VITALS: BMI 39.1
[2018-09-26 12:51] LABS: BASO # 0.03 K/mm3 (0.0-2.0); BASO % 0.4 % (0.0-3.0); EOS # 0.3 (0.0-0.7); EOS % 4.4 % (1.5-5.0); HEMOGLOBIN 9.5 g/dL (12.0-16.0); LYMPH # 1.1 (1.2-3.4); LYMPH % 13.6 % (22.0-35.0); MEAN CORPUSCULAR HGB CONC 30.4 g/dl (31.0-37.0); MEAN PLATELET VOLUME 9.6 fl (7.0-11.0); MONO # 0.7 (0.1-0.6); MONO % 9.5 % (1.0-6.0); RBC 3.39 10^6/uL (3.5-6.1); RED CELL DISTRIBUTION WIDTH 15.3 % (11.5-14.5); WHITE BLOOD COUNT 7.8 10^3/uL (4.5-11.0)
[2018-09-26 13:01] LABS: CALCIUM 9.4 mg/dL (8.4-10.5); INR 1.15; PARTIAL THROMBOPLASTIN TIME 41.3 Seconds (26.9-38.3)
[2018-09-26] MEDS ORDERED: Midazolam 2 MG/2 ML VIAL ONE (16:24)
[2018-09-26] MEDS ORDERED: Midazolam 2 MG/2 ML VIAL IVP ONE (16:45)
[2018-09-26] MEDS ORDERED: Oxycodone/Acetaminophen 5/325 mg Tab PO PRN (17:04)
[2018-09-26] MEDS ORDERED: Sodium Chloride 0.45% 1,000 ML IV SCH (17:15)
[2018-09-26 17:30] VITALS: RESP 18
[2018-09-26 17:38] VITALS: PULSE 68; TEMP 98.3; O2SAT 99
[2018-09-26 18:21] VITALS: BP 132/68
--- NOTE | 2018-09-26 20:26 | CT ---
PROCEDURE: CT guided left renal cortex biopsy. HISTORY: Proteinuria. Acute on chronic renal failure. History diabetes and hypertension. Repeat renal cortex biopsy PHYSICIAN(S): Alexys Hull MD. TECHNIQUE: The relative risks and indications of the procedure were explained to the patient and consent obtained. The patient was placed prone on the CT scanner and preliminary images through the knees obtained. Conscious sedation and monitoring were provided throughout the procedure by a nurse. The renal parenchyma bilaterally is normal appearance on these limited noncontrast images. A different location in the left renal cortex inferiorly was selected for the 2nd biopsy. A left posterior approach was selected and the area prepped and draped in the usual sterile fashion. 1% Xylocaine was used to anesthetize the skin and soft tissues. A 17-gauge guiding needle was advanced into the left lateral renal cortex inferiorly. Its position was confirmed with CT. Using coaxial technique, multiple core biopsies were obtained. The postprocedure images show no evidence of significant hemorrhage. IMPRESSION: 1. CT-guided left renal cortex biopsy as described above.
== END 2018-09-26 18:50 | disposition home or self-care (01) ==
LOC: SDS 12:14
PROVIDERS: ATTEND Radiology Vascular & Interventional Radiology
DX: N17.9 Acute kidney failure, unspecified (principal); I12.9 Hypertensive chronic kidney disease with stage 1 through stage 4 chronic kidney disease, or unspecified chronic kidney disease; E11.21 Type 2 diabetes mellitus with diabetic nephropathy; E11.22 Type 2 diabetes mellitus with diabetic chronic kidney disease; N18.9 Chronic kidney disease, unspecified; R80.9 Proteinuria, unspecified
CPT/HCPCS: 36415; 50200; 77012; 80048; 85025; 85610; 85730; J2250; J2405; J3010; J7030

== ENCOUNTER 2018-10-11 07:46 | Day surgery (SDC) | payer OTHER ==
[2018-10-11 07:52] VITALS: BMI 38.6
--- NOTE | 2018-10-11 08:35 | ED PDOC ---
Arrival/HPI - General Chief Complaint: Medical Clearance Time Seen by Provider: 10/11/18 07:48 - History of Present Illness Narrative History of Present Illness (Text): 73 yr old F w/ hx of ESRD on HD T/Thr/S, HTN, HLD, DM2, C sections, GERD, thyroid issue p/w malfunctioning dialysis catheter. Pt notes R dialysis catheter malfunction prior to HD today at 0600. Pt notes last full dialysis 2d prior on Monday10/09/18. She notes being sent to ED for preop labs for surgical repair vs replacement of R dialysis catheter. She denies any redness or erythema to dialysis catheter site. No leakage around site. No extension of tubing out of site. No trauma or fall to site. No fall. She denies any chest pain or shortness of breath. No rash. No neck pain or back pain. No headache. No abdominal pain or vaginal d/c. No extremity pain or swelling. No fever, chills or night sweats. No other complaints. PMD: Dr. Miguel Weathers: Dr. Sanford Surgeon: Dr. Gabriel Past Medical History - Infectious Disease Hx of Infectious Diseases: None - Reproductive Menopause: Yes - Cardiac Hx Pacemaker: No - Pulmonary Hx Chronic Obstructive Pulmonary Disease (COPD): Yes - Neurological Hx Paralysis: No - HEENT Hx HEENT Disorder: No - Renal Hx Renal Failure: Yes - Endocrine/Metabolic Hx Endocrine Disorders: No - Hematological/Oncological Hx Blood Transfusions: Yes Hx Blood Transfusion Reaction: No - Integumentary Hx Dermatological Disorder: No - Musculoskeletal/Rheumatological Hx Musculoskeletal Disorders: No - Gastrointestinal Hx Gastrointestinal Disorders: No - Genitourinary/Gynecological Hx Genitourinary Disorders: Yes (C/S X 3) - Psychiatric Hx Emotional Abuse: No Hx Physical Abuse: No Hx Substance Use: No - Anesthesia Hx Anesthesia: Yes Hx Anesthesia Reactions: No Hx Malignant Hyperthermia: No Family/Social History Family/Social History: Unknown Family HX Smoking Status: Never Smoked Hx Alcohol Use: No Hx Substance Use: No Allergies/Home Meds Allergies/Adverse Reactions: Allergies wheat Allergy (Intermediate, Verified 09/24/18 17:44) RASH scallops Allergy (Unknown, Verified 09/24/18 17:44) PT NOT SURE shrimp Allergy (Unknown, Verified 09/24/18 17:44) PT NOT SURE amlodipine Adverse Reaction (Severe, Verified 09/24/18 17:44) GLANDS IN NECK SWELLED Home Medications: Home Meds Medication Instructions Recorded Confirmed RX: Alprazolam [Xanax] 0.5 mg PO BID 08/16/18 09/24/18 RX: Levothyroxine [Synthroid] 0.125 mg PO QAM 08/16/18 09/24/18 RX: Metoprolol Succinate XL 100 mg PO QAM 08/16/18 09/24/18 [Toprol XL] RX: SITagliptin [Januvia] 50 mg PO DIN 08/16/18 09/24/18 RX: Simvastatin [Zocor] 20 mg PO QAM 08/16/18 09/24/18 RX: Ergocalciferol [Drisdol 50,000 1 cap PO Q30D 09/24/18 09/24/18 Intl Units Cap] RX: Pantoprazole [Protonix EC Tab] 40 mg PO QAM 09/24/18 09/24/18 Review of Systems - Review of Systems Constitutional: absent: Fatigue, Weight Change, Fevers Eyes: absent: Vision Changes, Photophobia, Eye Pain ENT: absent: Hearing Changes Respiratory: absent: SOB, Cough, Sputum Cardiovascular: absent: Chest Pain, Palpitations Gastrointestinal: absent: Abdominal Pain, Stool Changes Genitourinary Female: absent: Dysuria, Frequency Musculoskeletal: absent: Arthralgias, Back Pain Skin: absent: Rash, Pruritis, Abscess Neurological: absent: Headache, Dizziness, Focal Weakness Psychiatric: absent: Anxiety, Depression Physical Exam Vital Signs Reviewed: Yes Vital Signs Temp Pulse Resp BP Pulse Ox 10/11/18 08:17 97.6 F 64 18 185/93 H 100 Temperature: Afebrile Blood Pressure: Hypertensive Pulse: Regular Respiratory Rate: Normal Appearance: Positive for: Well-Appearing, Non-Toxic, Comfortable Pain Distress: None Mental Status: Positive for: Alert and Oriented X 3 - Systems Exam Head: Present: Atraumatic, Normocephalic Pupils: Present: PERRL Extroacular Muscles: Present: EOMI Conjunctiva: Present: Normal Ears: Present: Normal, NORMAL TM Mouth: Present: Moist Mucous Membranes Pharnyx: Present: Normal. No: ERYTHEMA, EXUDATE Nose (External): Present: Atraumatic. No: Abrasion Nose (Internal): Present: Normal Inspection Neck: Present: Normal Range of Motion. No: Meningeal Signs, MIDLINE TENDERNESS Respiratory/Chest: Present: Clear to Auscultation, Good Air Exchange, Other (R dialysis catheter site w/ out drainage, erythema or crepitus). No: Respiratory Distress, Tender to Palpation Cardiovascular: Present: Regular Rate and Rhythm, Normal S1, S2. No: Murmurs Abdomen: Present: Normal Bowel Sounds. No: Tenderness, Distention Back: Present: Normal Inspection. No: CVA Tenderness, Midline Tenderness Upper Extremity: Present: Normal Inspection, Normal ROM, NORMAL PULSES, Neurovascularly Intact. No: Cyanosis, Edema Lower Extremity: Present: Normal Inspection, NORMAL PULSES, Neurovascularly Intact. No: Edema, CALF TENDERNESS Neurological: Present: GCS=15, CN II-XII Intact, Speech Normal, Motor Func Grossly Intact Skin: Present: Warm, Dry, Normal Color. No: Rashes Psychiatric: Present: Alert, Oriented x 3, Normal Insight, Normal Concentration Medical Decision Making ED Course and Treatment: 73 yr old F w/ hx of ESRD on HD T/Thr/S, HTN, HLD, DM2, C sections, GERD, thyroid issue p/w malfunctioning dialysis catheter. R IJ tunnel dialysis catheter placed 09/18, renal biopsy 09/28. No tenderness to renal biopsy site, no erythema or redness. No signs of fall or trauma. No signs of catheter leakage or drainage, no signs of infection at site of insertion site. No crepitus. Likely malfunctioning catether requirng surgical eval. No fever, chills or night sweats. No chest pain or shortness of breath. EK, sinus torres, no stemi 10/11/18 08:49 Appreciate consult w/ surgical corsetier w/ Dr. Kebede: pending preop labs to [facility] to their service Pt in [facility], agreeable to plan. 10/11/18 10:04 labs, imaging largely unremarkable to [facility] remains w/ out any complaints BP improved pt in NAD, agreeable to plan - RAD Interpretation Radiology Orders: 10/11/18 07:52 CHEST PORTABLE [RAD] Stat Disposition/Present on Arrival - Present on Arrival Any Indicators Present on Arrival: No History of DVT/PE: No History of Uncontrolled Diabetes: No Urinary Catheter: No History of Decub. Ulcer: No History Surgical Site Infection Following: None - Disposition Have Diagnosis and Disposition been Completed?: Yes Diagnosis: Complication of vascular dialysis catheter Disposition Time: 08:52 Condition: STABLE Referrals: Kushal Rivera MD [Primary Care Provider] - Follow up with primary Forms: [employer] (Algerian)
--- NOTE | 2018-10-11 08:42 | CP.PCM.HP ---
History of Present Illness - History of Present Illness History of Present Illness: General Surgery H&P for Dr. Carmelo Alatorre, PGY1 This is a 73 year old female with PMH of ESRD on , NIDDM, diabetic nephropathy with glomerulosclerosis, HTN, hypothyroidism, celiac disease and HLD presenting to the ED from dialysis for nonfunctional right HD catheter. Patient had HD catheter placed on 09/14/18 and states that she has noticed bleeding intermittently from site during dialysis sessions. She went for her scheduled dialysis today in the hospital and staff were unable to perform dialysis due to nonfunctional dialysis catheter. Her last completed HD was on 10/09/18. She denies trauma to the catheter site, fluid leakage, and removal of catheter. She denies CP, SOB, fevers, nausea, vomiting, chills, back pain, abdominal pain, urinary symptoms, numbness, tingling, swelling, recent travel, recent sickness, sick contacts at home, and lifestyle change including medication/diet changes. 12 point ROS noted here, otherwise unremarkable. PMD: Dr. Rivera PMH: ESRD on , NIDDM, diabetic nephropathy with glomerulosclerosis, HTN, hypothyroidism, celiac disease and HLD SH: denies alcohol and drug use. Former smoker, quit 5 years ago. Sx: x3, uterine polyp removal, kidney biopsy FH: brother has Alzheimer's, brother and father had lung cancer All: scallops, shrimp, amlodipine Meds: calcium acetate 661mg TID, januvia 50mg daily, metoprolol 100mg daily, simvastatin 20mg daily, levothyroxine 125mg daily, [id number] TID, calitriol 5mg, vitamin D 50K monthly, pantoprazole 40mg Present on Admission - Present on Admission Any Indicators Present on Admission: No Past Patient History - Infectious Disease Hx of Infectious Diseases: None - Past Social History Smoking Status: Former Smoker - CARDIAC Hx Pacemaker: No - PULMONARY Hx Chronic Obstructive Pulmonary Disease (COPD): Yes - NEUROLOGICAL Hx Paralysis: No - HEENT Hx HEENT Problems: No - RENAL Hx Renal Failure: Yes - ENDOCRINE/METABOLIC Hx Endocrine Disorders: No - HEMATOLOGICAL/ONCOLOGICAL Hx Blood Transfusions: Yes Hx Blood Transfusion Reaction: No - INTEGUMENTARY Hx Dermatological Problems: No - MUSCULOSKELETAL/RHEUMATOLOGICAL Hx Musculoskeletal Disorders: No - GASTROINTESTINAL Hx Gastrointestinal Disorders: No - GENITOURINARY/GYNECOLOGICAL Hx Genitourinary Disorders: Yes (C/S X 3) - PSYCHIATRIC Hx Emotional Abuse: No Hx Physical Abuse: No Hx Substance Use: No - SURGICAL HISTORY Hx Surgeries: Yes - ANESTHESIA Hx Anesthesia: Yes Hx Anesthesia Reactions: No Hx Malignant Hyperthermia: No Meds Allergies/Adverse Reactions: Allergies Allergy/AdvReac Type Severity Reaction Status Date / Time wheat Allergy Intermediate RASH Verified 09/24/18 17:44 scallops Allergy Unknown PT NOT SURE Verified 09/24/18 17:44 shrimp Allergy Unknown PT NOT SURE Verified 09/24/18 17:44 amlodipine AdvReac Severe GLANDS IN Verified 09/24/18 17:44 NECK SWELLED Physical Exam - Constitutional Appears: Non-toxic, No Acute Distress - Head Exam Head Exam: ATRAUMATIC, NORMAL INSPECTION - Eye Exam Eye Exam: EOMI Pupil Exam: PERRL - ENT Exam ENT Exam: Mucous Membranes Moist - Neck Exam Neck exam: Positive for: Normal Inspection - Respiratory Exam Respiratory Exam: Clear to Auscultation Bilateral. absent: Accessory Muscle Use, Respiratory Distress - Cardiovascular Exam Cardiovascular Exam: REGULAR RHYTHM, +S1, +S2 - GI/Abdominal Exam GI & Abdominal Exam: Normal Bowel Sounds, Soft. absent: Firm, Guarding, Tenderness Additional comments: globular abdomen - Extremities Exam Extremities exam: Positive for: normal inspection, pedal pulses present. Negative for: calf tenderness, pedal edema, tenderness - Back Exam Back exam: NORMAL INSPECTION - Neurological Exam Neurological exam: Alert, CN II-XII Intact, Oriented x3 - Skin Skin Exam: Normal Color, Warm Additional comments: HD catheter on right chest wall is non draining, no blood/fluid noted surrounding site insertion. Dressing is clean and dry Results - Vital Signs Recent Vital Signs: Last Vital Signs Temp 97.6 F 10/11/18 08:17 Pulse 64 10/11/18 08:17 Resp 18 10/11/18 08:17 BP 185/93 H 10/11/18 08:17 Pulse Ox 100 10/11/18 08:17 - Labs Result Diagrams: 10/11/18 08:25 10/11/18 08:25 Assessment & Plan - Assessment and Plan (Free Text) Assessment: This is a 73 year old female with PMH of ESRD on presenting to the hospital for nonfunctional right HD catheter. Plan: -NPO -OR for HD catheter exchange -CXR ordered -CBC/CMP/Coags -EKG -Consented for procedure -D/w Dr. Jones
[2018-10-11 08:52] LABS: BASO # 0.03 K/mm3 (0.0-2.0); BASO % 0.4 % (0.0-3.0); EOS # 0.5 (0.0-0.7); HEMOGLOBIN 9.2 g/dL (12.0-16.0); LYMPH # 1.4 (1.2-3.4); LYMPH % 18.2 % (22.0-35.0); MEAN CELL VOLUME 95.5 fl (80.0-105.0); MEAN CORPUSCULAR HEMOGLOBIN 27.8 pg (25.0-35.0); MEAN CORPUSCULAR HGB CONC 29.1 g/dl (31.0-37.0); MEAN PLATELET VOLUME 9.9 fl (7.0-11.0); MONO # 0.5 (0.1-0.6); MONO % 6.2 % (1.0-6.0); RBC 3.31 10^6/uL (3.5-6.1); RED CELL DISTRIBUTION WIDTH 17.3 % (11.5-14.5); WHITE BLOOD COUNT 7.6 10^3/uL (4.5-11.0)
[2018-10-11 08:57] LABS: ALB/GLOB RATIO 1.3 (1.1-1.8); ALBUMIN 3.7 g/dL (3.0-4.8); CALCIUM 9.2 mg/dL (8.4-10.5)
[2018-10-11 09:00] LABS: INR 1.18; PARTIAL THROMBOPLASTIN TIME 41.4 Seconds (26.9-38.3); PROTHROMBIN TIME 13.3 SECONDS (9.4-12.5)
--- NOTE | 2018-10-11 09:38 | CARD ---
APPROVED REPORT Date of service: 10/11/2018 EKG Measurement Heart [id number] <Conclusion> Sinus rhythm with occasional premature ventricular complexes Otherwise normal ECG
--- NOTE | 2018-10-11 10:14 | RAD ---
Date of service: 10/11/2018 HISTORY: preop COMPARISON: 09/11/2018 TECHNIQUE: 1 view obtained. FINDINGS: LUNGS: No active pulmonary disease. PLEURA: No significant pleural effusion identified, no pneumothorax apparent. CARDIOVASCULAR: Aortic calcification Mild cardiomegaly no pulmonary vascular congestion. OSSEOUS STRUCTURES: No significant abnormalities. VISUALIZED UPPER ABDOMEN: Normal. OTHER FINDINGS: Right-sided dialysis catheter terminating at the caval atrial junction. There is no pneumothorax IMPRESSION: No active disease.
[2018-10-11] MEDS ORDERED: Lidocaine 1% Inj (20ml) ONE (13:09)
[2018-10-11] MEDS ORDERED: Liquid Adhesive TOP ONE (13:09)
[2018-10-11] MEDS ORDERED: Bupivacaine 0.5% 50 ML IJ ONE (13:09)
[2018-10-11] MEDS ORDERED: Propofol 10 mg/ml Inj (20 ML) ONE ×2 (13:28→14:39)
[2018-10-11] MEDS ORDERED: Midazolam 2 MG/2 ML VIAL ONE (13:28)
[2018-10-11] MEDS ORDERED: Lidocaine PF 2% (5 ml) Inj (For Cardiac Arrhy) ONE (14:00)
--- NOTE | 2018-10-11 15:20 | PCM.SURG1 ---
Surgeon's Initial Post Op Note - Surgeon's Notes Surgeon: Dr. Rhodes Director Alumni Relations: Dr. Daly PGY1 Type of Anesthesia: IV Sedation, Local Anesthesia Administered By: Dr. Kenyon Pre-Operative Diagnosis: malfunctioning permacatheter Operative Findings: see operative dictation Post-Operative Diagnosis: same Operation Performed: right IJ permacatheter exchange Specimen/Specimens Removed: previous permacatheter Estimated Blood Loss: EBL {In ML}: 5 Blood Products Given: N/A Drains Used: No Drains Post-Op Condition: Good Date of Surgery/Procedure: 10/11/18 Time of Surgery/Procedure: 15:20
[2018-10-11] MEDS ORDERED: Oxycodone/Acetaminophen 5/325 mg Tab PO PRN (15:23)
--- NOTE | 2018-10-11 15:25 | CP.PCM.DIS ---
Provider - Provider Date of Admission: 10/11/2018 Attending physician: Willian Rhodes MD Primary care physician: Kushal Rivera MD Time Spent in preparation of Discharge (in minutes): 60 Hospital Course - Lab Results Lab Results: Most Recent Lab Values WBC 7.6 10^3/uL (4.5-11.0) 10/11/18 08:25 RBC 3.31 10^6/uL (3.5-6.1) L 10/11/18 08:25 Hgb 9.2 g/dL (12.0-16.0) L 10/11/18 08:25 Hct 31.6 % (36.0-48.0) L 10/11/18 08:25 MCV 95.5 fl (80.0-105.0) D 10/11/18 08:25 MCH 27.8 pg (25.0-35.0) 10/11/18 08:25 MCHC 29.1 g/dl (31.0-37.0) L 10/11/18 08:25 RDW 17.3 % (11.5-14.5) H 10/11/18 08:25 Plt Count 339 10^3/uL (120.0-450.0) 10/11/18 08:25 MPV 9.9 fl (7.0-11.0) 10/11/18 08:25 Neut % (Auto) 68.2 % (50.0-68.0) H 10/11/18 08:25 Lymph % (Auto) 18.2 % (22.0-35.0) L 10/11/18 08:25 [place] % (Auto) 6.2 % (1.0-6.0) H 10/11/18 08:25 Eos % (Auto) 7.0 % (1.5-5.0) H 10/11/18 08:25 Baso % (Auto) 0.4 % (0.0-3.0) 10/11/18 08:25 Lymph # (Auto) 1.4 (1.2-3.4) 10/11/18 08:25 [place] # (Auto) 0.5 (0.1-0.6) 10/11/18 08:25 Eos # (Auto) 0.5 (0.0-0.7) 10/11/18 08:25 Baso # (Auto) 0.03 K/mm3 (0.0-2.0) 10/11/18 08:25 Absolute Neuts (auto) 5.20 (1.4-6.5) 10/11/18 08:25 PT 13.3 SECONDS (9.4-12.5) H 10/11/18 08:25 INR 1.18 10/11/18 08:25 APTT 41.4 Seconds (26.9-38.3) H 10/11/18 08:25 Sodium 138 mmol/L (132-148) 10/11/18 08:25 Potassium 4.2 mmol/L (3.6-5.0) 10/11/18 08:25 Chloride 101 mmol/L (98-107) 10/11/18 08:25 Carbon Dioxide 25 mmol/L (21-33) 10/11/18 08:25 Anion Gap 17 (10-20) 10/11/18 08:25 BUN 63 mg/dL (7-21) H 10/11/18 08:25 Creatinine 5.2 mg/dl (0.7-1.2) H 10/11/18 08:25 Est GFR ( Amer) 10 10/11/18 08:25 Est GFR (Non-Af Amer) 8 10/11/18 08:25 Random Glucose 160 mg/dL (70-110) H 10/11/18 08:25 Calcium 9.2 mg/dL (8.4-10.5) 10/11/18 08:25 Magnesium 1.7 mg/dL (1.7-2.2) 10/11/18 08:25 Total Bilirubin 0.5 mg/dL (0.2-1.3) 10/11/18 08:25 AST 26 U/L (14-36) 10/11/18 08:25 ALT 27 U/L (7-56) 10/11/18 08:25 Alkaline Phosphatase 63 U/L (38-126) 10/11/18 08:25 Total Protein 6.6 g/dL (5.8-8.3) 10/11/18 08:25 Albumin 3.7 g/dL (3.0-4.8) 10/11/18 08:25 Globulin 2.9 gm/dL 10/11/18 08:25 Albumin/Globulin Ratio 1.3 (1.1-1.8) 10/11/18 08:25 Blood Type AB POSITIVE 10/11/18 08:25 Antibody Screen Negative 10/11/18 08:25 BBK History Checked Patient has bt 10/11/18 08:25 - Hospital Course Hospital Course: 73 year old female, past medical history significant for hypertension, hyperlipidemia, non-insulin dependent diabetes mellitus, celiacs disease, and ESRD, who presented to our emergency department after being seen in the outpatient Dialysis Unit with a malfunctioning dialysis catheter. Patient admitted to same day surgery through the emergency department for a right IJ permacatheter exchange. Patient was prepared for the operating room with labs, CXR, EKG, NPO diet. Patient was taken to the OR and had a right IR permacatheter exchange procedure by Dr. Rhodes under IV sedation. Patient tolerated the procedure well and was taken to PACU without complications. Patient then discharged from [facility] to continue her dialysis session outpatient. Patient instructed to follow up with Dr. Rhodes for further evaluation and treatment within 14 days of discharge. Patient to resume all home medications and regular diet. Instructions regarding dressing care provided. Patient acknowledged and verbalized understanding of treatment plan. All questions and concerns were addressed. If symptoms worsen, patient instructed to return promptly to nearest ED. Above is a brief patient summary, for a detailed hospital course please refer to medical records. Discharge Exam - Head Exam Head Exam: ATRAUMATIC, NORMAL INSPECTION - Eye Exam Eye Exam: EOMI Pupil Exam: PERRL - ENT Exam ENT Exam: Mucous Membranes Moist - Respiratory Exam Respiratory Exam: NORMAL BREATHING PATTERN, UNREMARKABLE. absent: Wheezes, Respiratory Distress - Cardiovascular Exam Cardiovascular Exam: REGULAR RHYTHM, +S1, +S2 - GI/Abdominal Exam GI & Abdominal Exam: Normal Bowel Sounds, Soft. absent: Tenderness - Rectal Exam Rectal Exam: Deferred - Extremities Exam Extremities exam: normal inspection, pedal pulses present - Back Exam Back exam: absent: CVA tenderness (L), CVA tenderness (R) - Neurological Exam Neurological exam: Alert, Oriented x3 - Psychiatric Exam Psychiatric exam: Normal Affect, Normal Mood - Skin Skin Exam: Dry, Intact, Normal Color, Warm Discharge Plan - Follow Up Plan Condition: STABLE Disposition: HOME/ ROUTINE Additional Instructions: Please follow up with your surgeon Dr. Rhodes within 14 days of discharge. Will remove skin suture at that time. Please resume all home medications as prescribed by your PMD. Ok to use new permacatheter for dialysis. Remove dressings after 48 hours. Keep area clean and dry for 2 weeks. Ok to shower. Avoid pools or baths for 2 weeks. Resume regular, renal diet. Tylenol or ibuprofen for pain. Do not take ibuprofen on an empty stomach as this can cause ulcers. If symptoms worsen, promptly return to nearest ED. Referrals: Kushal Rivera MD [Primary Care Provider] - Follow up with primary Willian Rhodes MD [Staff Provider] -
[2018-10-11 16:18] VITALS: TEMP 97.6
--- NOTE | 2018-10-11 16:22 | RAD ---
Date of service: 10/11/2018 PROCEDURE: Fluoroscopy up to 1 hr. HISTORY: DIALYSIS CATHETER INSERTION COMPARISON: None TECHNIQUE: Total fluoroscopic time (continuous mode) utilized during the procedure 38.5 seconds. FINDINGS: Total exam DLP: 7.37 (mGy). IMPRESSION: Less than 1 hr fluoroscopic assistance provided during performance of the procedure.
[2018-10-11 16:55] VITALS: BP 157/90; PULSE 75; RESP 20; O2SAT 97
--- NOTE | 2018-10-17 04:56 | OP ---
PROCEDURE DATE: 10/11/2018 PREOPERATIVE DIAGNOSIS: Nonfunctioning and bleeding hemodialysis catheter. POSTOPERATIVE DIAGNOSIS: Nonfunctioning and bleeding hemodialysis catheter. PROCEDURE PERFORMED: Removal of the old hemodialysis catheter and placement of a new catheter into the right internal jugular vein. SURGEON: Willian Rhodes MD. INSERT OPERATOR: Robert Daly D.O. ANESTHESIOLOGIST: As per OR record. ANESTHESIA: General endotracheal anesthesia. ESTIMATED BLOOD LOSS: Minimal. SPECIMENS: None. INDICATIONS: The patient is a 73-year-old female with end-stage renal disease, hypertension, coronary artery disease, and rww-lnonvgd-dwqetidgy diabetes. The patient is also severely obese. The patient had a hemodialysis catheter placed a few days ago and postoperatively the patient developed bleeding from the catheter site every single time when she was going for dialysis and before the end of dialysis. The source of this was investigated. However, we were not able to identify that source. So, decision was made to proceed with the change in the catheter. The patient was brought to the operating room for the procedure. DESCRIPTION OF PROCEDURE: First, a standard time-out procedure took place and everybody in the room agreed as to the patient's identity, diagnoses and procedure to be performed. The patient was placed on the operating table in a supine position, was connected to EKG, blood pressure and pulse oximetry monitors. The patient then underwent general endotracheal anesthesia and was prepped and draped in the usual sterile fashion. First, the old catheter was carefully removed by first placing a small incision above the clavicle and the catheter was retrieved through that and pulled back partially. The catheter was then clamped and transected and the distal portion was removed. The proximal portion was then cannulated with the wire and the wire under visualization with the fluoroscopy was carefully advanced into the superior vena cava. Once this was done, we then proceeded to placing a new catheter through the new separate incision lateral to the previous one and brought it out through the small incision made previously superior to the clavicle. Now, the old catheter was completely removed. The wire was left in place. The dilator over the sheath was placed through that incision into the superior vena cava under fluoroscopy. The dilator with the guidewire was removed and the sheath was left in place. The catheter was now advanced through the sheath and the sheath was peeled away. The catheter was then flushed with heparinized saline. There was easy flushing through and very easy to pull blood back from that catheter. The catheter was then heparinized with 2 mL of 1000 per mL heparin into each one of the ports. The wounds were now closed using 4-0 Monocryl for the small supraclavicular incision. Catheter was sutured to the skin using 3-0 nylon and the exit site of the catheter was tied with 4-0 Monocryl. A sterile dressing was applied to the wounds. The old catheter wound was also covered with sterile dressing. The patient tolerated the procedure well and there were no complications. The patient was awakened and transferred to the recovery room for further observation. Willian Rhodes MD
== END 2018-10-11 17:00 | disposition home or self-care (01) ==
LOC: ED 07:46 → SDS 10:36
PROVIDERS: ATTEND General Practice
DX: T82.41XA Breakdown (mechanical) of vascular dialysis catheter, initial encounter (principal); T82.838A Hemorrhage due to vascular prosthetic devices, implants and grafts, initial encounter; N18.6 End stage renal disease; I12.0 Hypertensive chronic kidney disease with stage 5 chronic kidney disease or end stage renal disease; E11.21 Type 2 diabetes mellitus with diabetic nephropathy; E11.22 Type 2 diabetes mellitus with diabetic chronic kidney disease; E03.9 Hypothyroidism, unspecified; E78.5 Hyperlipidemia, unspecified; K21.9 Gastro-esophageal reflux disease without esophagitis; J44.9 Chronic obstructive pulmonary disease, unspecified; Y84.1 Kidney dialysis as the cause of abnormal reaction of the patient, or of later complication, without mention of misadventure at the time of the procedure; Z99.2 Dependence on renal dialysis; Z87.891 Personal history of nicotine dependence; Z79.84 Long term (current) use of oral hypoglycemic drugs
CPT/HCPCS: 36558; 71045; 76000; 80053; 83735; 85025; 85610; 85730; 86850; 86900; 93005; 99284; C1750; J0690; J1644; J2405; J2704; J3010; J7120

== ENCOUNTER 2018-10-12 13:18 | Outpatient (CLI) | payer OTHER | END 2018-10-12 13:19 | disposition home or self-care (01) | LOC: RAD 13:18 | DX: Z99.2 Dependence on renal dialysis (principal) ==